=== PATIENT | male | born 1970 | race Asian ===

== ENCOUNTER 2023-05-14 13:57 | Inpatient (IN) | payer OTHER ==
[~2023-05-14] VITALS: Ht 162.6 cm; Wt 53.4 kg
[2023-05-14 15:26] LABS: GLUCOMETER DEV NAME(LOC) ERT.5; GLUCOSE,POINT OF CARE 92 MG/DL (70-110)
[2023-05-14 16:18] LABS: COVID AG,FIA SOURCE NASAL SWAB
[2023-05-14 16:19] LABS: EOSINOPHILS % (AUTO) 3.6 % (1.0-6.0); HEMATOCRIT 39.7 % (41-53); HEMOGLOBIN 12.4 g/dL (13.5-17.5); LYMPHOCYTES # (AUTO) 2.5 K/uL (1.0-4.8); LYMPHOCYTES % (AUTO) 29.8 % (22.0-44.0); MEAN CORPUSCULAR HEMOGLOBIN 22.6 pg (26.0-34.0); MEAN CORPUSCULAR HGB CONC 31.2 G/dL (31.0-37.0); MEAN CORPUSCULAR VOLUME 72 fL (80-100); MONOCYTES # (AUTO) 0.4 K/uL (0.1-1.0); MONOCYTES % (AUTO) 5.3 % (2.0-9.0); NEUTROPHILS # (AUTO) 4.9 K/uL (1.8-7.7); NEUTROPHILS % (AUTO) 59.3 % (40.0-70.0); PLATELET COUNT (AUTO) 331 K/uL (150-450); RED BLOOD CELL COUNT(AUTO) 5.47 MIL/uL (4.50-5.90); RED CELL DISTRIBUTION WIDTH 13.9 % (11.5-14.5); WHITE BLOOD COUNT (AUTO) 8.2 K/uL (4.5-11.0)
[2023-05-14 16:23] LABS: ANION GAP 8 mmol/L (8-16); CALCIUM, TOTAL 9.4 mg/dL (8.8-10.5); CARBON DIOXIDE 31 mmol/L (22-29); CHLORIDE 105 mmol/L (98-107); CREATININE 0.47 mg/dL (0.60-1.30); GLOMERULAR FILTR. RATE CALC > 60 mL/min (>60); GLUCOSE,RANDOM 91 mg/dL (70-110); POTASSIUM 3.4 mmol/L (3.5-5.1); SODIUM SERUM 144 mmol/L (136-145); UREA NITROGEN, BLOOD 4 mg/dL (7-18)
[2023-05-14 16:28] LABS: ALANINE AMINOTRANSFERASE 23 U/L (12-78); ALBUMIN 4.2 g/dL (3.4-5.0); ALKALINE PHOSPHATASE 182 U/L (46-116); ASPARTATE AMINOTRANSFERASE 25 U/L (15-37); BILIRUBIN,TOTAL 0.2 mg/dL (0.1-1.0); TOTAL PROTEIN, SERUM 9.2 g/dL (6.4-8.2)
[2023-05-14 16:52] LABS: SARS-COV2 (COVID) ANTIGEN,FIA Negative (Negative)
[2023-05-14 17:02] LABS: RBC MORPHOLOGY COMMENT ABNORMAL RBC MORPH
[2023-05-14] MEDS ORDERED: FERR325T27 PO (17:39)
[2023-05-14] MEDS ORDERED: METO25XL PO (17:39)
[2023-05-14] MEDS ORDERED: PANT-31 PO (17:39)
[2023-05-14] MEDS ORDERED: METF-1211 PO (17:39)
[2023-05-14] MEDS ORDERED: DULO20CA71 PO (17:39)
[2023-05-14] MEDS ORDERED: LISI-894 PO (17:39)
[2023-05-14] MEDS ORDERED: DESM0.1T6 PO (17:39)
[2023-05-14] MEDS ORDERED: PENT400T72 PO (17:39)
[2023-05-14] MEDS ORDERED: ATOR20TA65 PO (17:39)
[2023-05-14] MEDS ORDERED: LEVO88TA7 PO (17:39)
[2023-05-14] MEDS ORDERED: LEVE750T10 PO (17:39)
[2023-05-14] MEDS ORDERED: ONDANSETRON HCL 4 MG/2 ML VIAL IVP ONE (18:30)
[2023-05-14] MEDS ORDERED: MORPHINE SULFATE 2 MG/ML SYRINGE IVP ONE (18:30)
[2023-05-14 18:41] LABS: GLUCOMETER DEV NAME(LOC) ERT.5; GLUCOSE,POINT OF CARE 100 MG/DL (70-110)
[2023-05-14] MEDS ORDERED: POTASSIUM CHLORIDE 10% 40 MEQ/30 ML LIQUID UDCUP PO ONE (21:30)
[2023-05-14] MEDS ORDERED: ACETAMINOPHEN 325 MG TABLET PO PRN (21:30)
[2023-05-14] MEDS ORDERED: ONDANSETRON HCL 4 MG/2 ML VIAL IVP PRN (21:30)
[2023-05-14 22:50] VITALS: BP 166/89; PULSE 78; RESP 18; TEMP 97.7
[2023-05-14] MEDS: HEPARIN SODIUM,PORCINE 5,000 UNITS/ML VIAL SQ SCH (23:50)
[2023-05-15 03:46] VITALS: BP 127/87; PULSE 92; RESP 18; TEMP 98.1
[2023-05-15 06:53] LABS: BASOPHILS % (AUTO) 0.2 % (0.0-2.0); EOSINOPHILS % (AUTO) 5.5 % (1.0-6.0); HEMATOCRIT 35.4 % (41-53); HEMOGLOBIN 11.6 g/dL (13.5-17.5); LYMPHOCYTES % (AUTO) 33.8 % (22.0-44.0); MEAN CORPUSCULAR HEMOGLOBIN 23.3 pg (26.0-34.0); MEAN CORPUSCULAR HGB CONC 32.6 G/dL (31.0-37.0); MEAN CORPUSCULAR VOLUME 71 fL (80-100); MONOCYTES # (AUTO) 0.7 K/uL (0.1-1.0); MONOCYTES % (AUTO) 7.5 % (2.0-9.0); NEUTROPHILS # (AUTO) 4.7 K/uL (1.8-7.7); PLATELET COUNT (AUTO) 343 K/uL (150-450); RED BLOOD CELL COUNT(AUTO) 4.96 MIL/uL (4.50-5.90); RED CELL DISTRIBUTION WIDTH 13.9 % (11.5-14.5); WHITE BLOOD COUNT (AUTO) 8.8 K/uL (4.5-11.0)
[2023-05-15] MEDS ORDERED: LIDOCAINE 5% TRANSDERMAL PATCH TD ONE (07:00)
[2023-05-15] MEDS ORDERED: LIDOCAINE 5% 36 GM OINTMENT TP ONE (07:00)
[2023-05-15 07:31] LABS: ANION GAP 7 mmol/L (8-16); CALCIUM, TOTAL 9.2 mg/dL (8.8-10.5); CARBON DIOXIDE 28 mmol/L (22-29); CHLORIDE 104 mmol/L (98-107); CREATININE 0.45 mg/dL (0.60-1.30); GLOMERULAR FILTR. RATE CALC > 60 mL/min (>60); GLUCOSE,RANDOM 103 mg/dL (70-110); POTASSIUM 3.6 mmol/L (3.5-5.1); SODIUM SERUM 139 mmol/L (136-145); UREA NITROGEN, BLOOD 3 mg/dL (7-18)
[2023-05-15 08:10] VITALS: BP 118/94; PULSE 83; RESP 20; TEMP 98
[2023-05-15] MEDS: LEVOTHYROXINE SODIUM 88 MCG TABLET PO SCH (08:42)
[2023-05-15] MEDS: MetFORMIN HCL 500 MG TABLET PO SCH ×2 (08:43→17:54)
[2023-05-15] MEDS: DOCUSATE SODIUM 100 MG CAPSULE PO SCH ×2 (08:43→20:28)
[2023-05-15] MEDS: PENTOXIFYLLINE 400 MG PO SCH ×3 (08:43→20:27)
[2023-05-15] MEDS: DULoxetine HCL 20 MG CAPSULE PO SCH (08:43)
[2023-05-15] MEDS: PANTOPRAZOLE SODIUM 40 MG DR TABLET PO SCH (08:43)
[2023-05-15] MEDS: METOPROLOL SUCCINATE 25 MG ER TABLET PO SCH (08:43)
[2023-05-15] MEDS: ATORVASTATIN CALCIUM 20 MG TABLET PO SCH (08:43)
[2023-05-15] MEDS: LevETIRAcetam 250 MG TABLET PO SCH ×2 (08:43→20:27)
[2023-05-15] MEDS: FERROUS SULFATE 325 MG EC TABLET PO SCH (08:43)
[2023-05-15] MEDS: LISINOPRIL 20 MG TABLET PO SCH (08:43)
[2023-05-15] MEDS: HEPARIN SODIUM,PORCINE 5,000 UNITS/ML VIAL SQ SCH ×3 (08:44→23:52)
[2023-05-15] MEDS ORDERED: DESMOPRESSIN ACETATE 0.1 MG TABLET PO SCH (09:00)
[2023-05-15 09:50] LABS: RBC MORPHOLOGY COMMENT ABNORMAL RBC MORPH
[2023-05-15] MEDS ORDERED: MORPHINE SULFATE 2 MG/ML SYRINGE IVP PRN (15:30)
[2023-05-15 16:41] VITALS: BP 102/60; PULSE 65; RESP 18; TEMP 97.8
[2023-05-15 19:44] VITALS: BP 90/60; PULSE 68; RESP 18; TEMP 98.4
[2023-05-15] MEDS ORDERED: SODIUM CHLORIDE 0.9% 500 ML IV ONE (20:30)
[2023-05-16 04:40] VITALS: BP 90/59; PULSE 65; RESP 18; TEMP 98
[2023-05-16 07:10] LABS: BASOPHILS % (AUTO) 0.7 % (0.0-2.0); EOSINOPHILS % (AUTO) 3.7 % (1.0-6.0); HEMATOCRIT 34.7 % (41-53); HEMOGLOBIN 11.3 g/dL (13.5-17.5); LYMPHOCYTES # (AUTO) 2.6 K/uL (1.0-4.8); LYMPHOCYTES % (AUTO) 27.6 % (22.0-44.0); MEAN CORPUSCULAR HEMOGLOBIN 23.1 pg (26.0-34.0); MEAN CORPUSCULAR HGB CONC 32.4 G/dL (31.0-37.0); MEAN CORPUSCULAR VOLUME 71 fL (80-100); MONOCYTES # (AUTO) 0.6 K/uL (0.1-1.0); MONOCYTES % (AUTO) 6.3 % (2.0-9.0); NEUTROPHILS # (AUTO) 5.8 K/uL (1.8-7.7); NEUTROPHILS % (AUTO) 61.7 % (40.0-70.0); PLATELET COUNT (AUTO) 312 K/uL (150-450); RED BLOOD CELL COUNT(AUTO) 4.87 MIL/uL (4.50-5.90); RED CELL DISTRIBUTION WIDTH 13.7 % (11.5-14.5); WHITE BLOOD COUNT (AUTO) 9.4 K/uL (4.5-11.0)
[2023-05-16 07:15] LABS: ANION GAP 6 mmol/L (8-16); CARBON DIOXIDE 29 mmol/L (22-29); CHLORIDE 101 mmol/L (98-107); CREATININE 0.54 mg/dL (0.60-1.30); GLOMERULAR FILTR. RATE CALC > 60 mL/min (>60); GLUCOSE,RANDOM 97 mg/dL (70-110); POTASSIUM 4.1 mmol/L (3.5-5.1); SODIUM SERUM 136 mmol/L (136-145); UREA NITROGEN, BLOOD 10 mg/dL (7-18)
[2023-05-16 07:36] LABS: RBC MORPHOLOGY COMMENT ABNORMAL RBC MORPH
[2023-05-16 08:29] VITALS: BP 140/62; PULSE 76; RESP 18; TEMP 98.3
[2023-05-16] MEDS: PENTOXIFYLLINE 400 MG PO SCH ×3 (08:47→20:09)
[2023-05-16] MEDS: LISINOPRIL 20 MG TABLET PO SCH (08:47)
[2023-05-16] MEDS: LEVOTHYROXINE SODIUM 88 MCG TABLET PO SCH (08:47)
[2023-05-16] MEDS: METOPROLOL SUCCINATE 25 MG ER TABLET PO SCH (08:47)
[2023-05-16] MEDS: MetFORMIN HCL 500 MG TABLET PO SCH ×2 (08:47→17:58)
[2023-05-16] MEDS: ATORVASTATIN CALCIUM 20 MG TABLET PO SCH (08:47)
[2023-05-16] MEDS: DULoxetine HCL 20 MG CAPSULE PO SCH (08:47)
[2023-05-16] MEDS: PANTOPRAZOLE SODIUM 40 MG DR TABLET PO SCH (08:47)
[2023-05-16] MEDS: LevETIRAcetam 250 MG TABLET PO SCH ×2 (08:48→20:09)
[2023-05-16] MEDS: DOCUSATE SODIUM 100 MG CAPSULE PO SCH ×2 (08:48→20:09)
[2023-05-16] MEDS: FERROUS SULFATE 325 MG EC TABLET PO SCH (08:48)
[2023-05-16] MEDS: HEPARIN SODIUM,PORCINE 5,000 UNITS/ML VIAL SQ SCH ×3 (08:50→23:40)
[2023-05-16 16:10] VITALS: BP 109/89; PULSE 72; RESP 18; TEMP 97.7
[2023-05-16 19:48] VITALS: BP 135/73; PULSE 68; RESP 20; TEMP 98
[2023-05-16] MEDS: MORPHINE SULFATE 2 MG/ML SYRINGE IVP PRN (20:10)
[2023-05-17 05:29] VITALS: BP 120/80; PULSE 75; RESP 18; TEMP 98
[2023-05-17] MEDS: LEVOTHYROXINE SODIUM 88 MCG TABLET PO SCH (05:39)
[2023-05-17 07:26] LABS: BASOPHILS % (AUTO) 1.2 % (0.0-2.0); HEMATOCRIT 35.7 % (41-53); HEMOGLOBIN 11.6 g/dL (13.5-17.5); LYMPHOCYTES # (AUTO) 3.2 K/uL (1.0-4.8); LYMPHOCYTES % (AUTO) 33.8 % (22.0-44.0); MEAN CORPUSCULAR HEMOGLOBIN 23.1 pg (26.0-34.0); MEAN CORPUSCULAR HGB CONC 32.4 G/dL (31.0-37.0); MEAN CORPUSCULAR VOLUME 71 fL (80-100); MONOCYTES # (AUTO) 0.6 K/uL (0.1-1.0); MONOCYTES % (AUTO) 6.3 % (2.0-9.0); NEUTROPHILS # (AUTO) 5.2 K/uL (1.8-7.7); NEUTROPHILS % (AUTO) 54.7 % (40.0-70.0); PLATELET COUNT (AUTO) 338 K/uL (150-450); RED BLOOD CELL COUNT(AUTO) 5.02 MIL/uL (4.50-5.90); RED CELL DISTRIBUTION WIDTH 13.8 % (11.5-14.5); WHITE BLOOD COUNT (AUTO) 9.5 K/uL (4.5-11.0)
[2023-05-17 07:28] VITALS: BP 137/73; PULSE 71; RESP 18; TEMP 98.3
[2023-05-17 07:32] LABS: CHLORIDE 99 mmol/L (98-107); POTASSIUM 3.9 mmol/L (3.5-5.1); SODIUM SERUM 135 mmol/L (136-145)
[2023-05-17 07:47] LABS: ANION GAP 10 mmol/L (8-16); CALCIUM, TOTAL 9.2 mg/dL (8.8-10.5); CARBON DIOXIDE 26 mmol/L (22-29); CREATININE 0.42 mg/dL (0.60-1.30); GLOMERULAR FILTR. RATE CALC > 60 mL/min (>60); GLUCOSE,RANDOM 94 mg/dL (70-110); UREA NITROGEN, BLOOD 9 mg/dL (7-18)
[2023-05-17] MEDS: METOPROLOL SUCCINATE 25 MG ER TABLET PO SCH (08:49)
[2023-05-17] MEDS: DULoxetine HCL 20 MG CAPSULE PO SCH (08:49)
[2023-05-17] MEDS: PENTOXIFYLLINE 400 MG PO SCH ×3 (08:50→20:18)
[2023-05-17] MEDS: FERROUS SULFATE 325 MG EC TABLET PO SCH (08:50)
[2023-05-17] MEDS: LISINOPRIL 20 MG TABLET PO SCH (08:50)
[2023-05-17] MEDS: LevETIRAcetam 250 MG TABLET PO SCH ×2 (08:50→20:18)
[2023-05-17] MEDS: MetFORMIN HCL 500 MG TABLET PO SCH ×2 (08:51→17:55)
[2023-05-17] MEDS: HEPARIN SODIUM,PORCINE 5,000 UNITS/ML VIAL SQ SCH ×3 (08:51→23:27)
[2023-05-17] MEDS: DOCUSATE SODIUM 100 MG CAPSULE PO SCH ×2 (08:51→20:18)
[2023-05-17] MEDS: ATORVASTATIN CALCIUM 20 MG TABLET PO SCH (08:51)
[2023-05-17] MEDS: PANTOPRAZOLE SODIUM 40 MG DR TABLET PO SCH (08:51)
[2023-05-17] MEDS: MORPHINE SULFATE 2 MG/ML SYRINGE IVP PRN ×2 (15:21→23:26)
[2023-05-17 15:41] VITALS: BP 107/68; PULSE 71; RESP 18; TEMP 98
[2023-05-17 19:39] VITALS: BP 98/68; PULSE 71; RESP 18; TEMP 98
[2023-05-17 23:22] VITALS: BP 119/79; RESP 17
[2023-05-18 04:02] VITALS: BP 106/81; PULSE 62; RESP 18; TEMP 98
[2023-05-18] MEDS: LEVOTHYROXINE SODIUM 88 MCG TABLET PO SCH (05:51)
[2023-05-18 07:24] LABS: BASOPHILS % (AUTO) 1.1 % (0.0-2.0); EOSINOPHILS % (AUTO) 3.4 % (1.0-6.0); HEMATOCRIT 35.7 % (41-53); HEMOGLOBIN 11.7 g/dL (13.5-17.5); LYMPHOCYTES # (AUTO) 2.9 K/uL (1.0-4.8); LYMPHOCYTES % (AUTO) 28.8 % (22.0-44.0); MEAN CORPUSCULAR HEMOGLOBIN 23.2 pg (26.0-34.0); MEAN CORPUSCULAR HGB CONC 32.8 G/dL (31.0-37.0); MEAN CORPUSCULAR VOLUME 71 fL (80-100); MONOCYTES # (AUTO) 0.7 K/uL (0.1-1.0); MONOCYTES % (AUTO) 6.6 % (2.0-9.0); NEUTROPHILS # (AUTO) 6.2 K/uL (1.8-7.7); NEUTROPHILS % (AUTO) 60.1 % (40.0-70.0); PLATELET COUNT (AUTO) 336 K/uL (150-450); RED BLOOD CELL COUNT(AUTO) 5.04 MIL/uL (4.50-5.90); RED CELL DISTRIBUTION WIDTH 14.1 % (11.5-14.5); WHITE BLOOD COUNT (AUTO) 10.2 K/uL (4.5-11.0)
[2023-05-18 07:48] VITALS: BP 110/82; PULSE 66; RESP 18; TEMP 98.2
[2023-05-18 07:56] LABS: ANION GAP 7 mmol/L (8-16); CALCIUM, TOTAL 9.4 mg/dL (8.8-10.5); CARBON DIOXIDE 30 mmol/L (22-29); CHLORIDE 98 mmol/L (98-107); CREATININE 0.44 mg/dL (0.60-1.30); GLOMERULAR FILTR. RATE CALC > 60 mL/min (>60); GLUCOSE,RANDOM 99 mg/dL (70-110); POTASSIUM 3.8 mmol/L (3.5-5.1); SODIUM SERUM 135 mmol/L (136-145); UREA NITROGEN, BLOOD 10 mg/dL (7-18)
[2023-05-18] MEDS: LISINOPRIL 20 MG TABLET PO SCH (08:15)
[2023-05-18] MEDS: PENTOXIFYLLINE 400 MG PO SCH ×3 (08:15→20:55)
[2023-05-18] MEDS: DULoxetine HCL 20 MG CAPSULE PO SCH (08:15)
[2023-05-18] MEDS: MetFORMIN HCL 500 MG TABLET PO SCH ×2 (08:15→17:31)
[2023-05-18] MEDS: FERROUS SULFATE 325 MG EC TABLET PO SCH (08:15)
[2023-05-18] MEDS: DOCUSATE SODIUM 100 MG CAPSULE PO SCH ×2 (08:16→20:55)
[2023-05-18] MEDS: ATORVASTATIN CALCIUM 20 MG TABLET PO SCH (08:16)
[2023-05-18] MEDS: LevETIRAcetam 250 MG TABLET PO SCH ×2 (08:16→20:55)
[2023-05-18] MEDS: METOPROLOL SUCCINATE 25 MG ER TABLET PO SCH (08:16)
[2023-05-18] MEDS: PANTOPRAZOLE SODIUM 40 MG DR TABLET PO SCH (08:16)
[2023-05-18] MEDS: HEPARIN SODIUM,PORCINE 5,000 UNITS/ML VIAL SQ SCH ×3 (08:17→23:51)
[2023-05-18] MEDS: MORPHINE SULFATE 2 MG/ML SYRINGE IVP PRN ×2 (13:33→21:34)
[2023-05-18 15:30] VITALS: BP 114/84; PULSE 68; RESP 18; TEMP 97.4
[2023-05-18 19:50] VITALS: BP 106/75; PULSE 87; RESP 18; TEMP 97.5
[2023-05-19 04:35] VITALS: BP 113/73; PULSE 77; RESP 18; TEMP 98
[2023-05-19] MEDS: LEVOTHYROXINE SODIUM 88 MCG TABLET PO SCH (06:07)
[2023-05-19 08:25] VITALS: BP 116/77; PULSE 78; RESP 18; TEMP 97.8
[2023-05-19] MEDS: LevETIRAcetam 250 MG TABLET PO SCH ×2 (08:38→20:15)
[2023-05-19] MEDS: LISINOPRIL 20 MG TABLET PO SCH (08:38)
[2023-05-19] MEDS: PANTOPRAZOLE SODIUM 40 MG DR TABLET PO SCH (08:38)
[2023-05-19] MEDS: PENTOXIFYLLINE 400 MG PO SCH ×4 (08:38→20:19)
[2023-05-19] MEDS: FERROUS SULFATE 325 MG EC TABLET PO SCH (08:38)
[2023-05-19] MEDS: MetFORMIN HCL 500 MG TABLET PO SCH ×2 (08:38→17:14)
[2023-05-19] MEDS: DULoxetine HCL 20 MG CAPSULE PO SCH (08:38)
[2023-05-19] MEDS: METOPROLOL SUCCINATE 25 MG ER TABLET PO SCH (08:38)
[2023-05-19] MEDS: DOCUSATE SODIUM 100 MG CAPSULE PO SCH ×3 (08:43→20:19)
[2023-05-19] MEDS: HEPARIN SODIUM,PORCINE 5,000 UNITS/ML VIAL SQ SCH ×3 (08:43→23:53)
[2023-05-19] MEDS: ATORVASTATIN CALCIUM 20 MG TABLET PO SCH (08:48)
[2023-05-19] MEDS: MORPHINE SULFATE 2 MG/ML SYRINGE IVP PRN ×2 (09:00→17:12)
[2023-05-19 12:11] LABS: GLUCOMETER DEV NAME(LOC) 6N.2B; GLUCOSE,POINT OF CARE 107 MG/DL (70-110)
[2023-05-19 15:28] VITALS: BP 117/73; PULSE 73; RESP 18; TEMP 98.4
[2023-05-19 19:54] VITALS: BP 119/77; PULSE 70; RESP 18; TEMP 98.5
[2023-05-20] MEDS: MORPHINE SULFATE 2 MG/ML SYRINGE IVP PRN ×3 (00:57→20:22)
[2023-05-20 04:14] VITALS: BP 117/71; PULSE 75; RESP 18; TEMP 97.8
[2023-05-20] MEDS: LEVOTHYROXINE SODIUM 88 MCG TABLET PO SCH (06:10)
[2023-05-20 08:21] VITALS: BP 108/80; PULSE 69; RESP 19; TEMP 98.4
[2023-05-20] MEDS: LevETIRAcetam 250 MG TABLET PO SCH ×2 (08:57→20:18)
[2023-05-20] MEDS: MetFORMIN HCL 500 MG TABLET PO SCH ×2 (08:57→18:00)
[2023-05-20] MEDS: HEPARIN SODIUM,PORCINE 5,000 UNITS/ML VIAL SQ SCH ×3 (08:57→23:03)
[2023-05-20] MEDS: PANTOPRAZOLE SODIUM 40 MG DR TABLET PO SCH (08:58)
[2023-05-20] MEDS: DULoxetine HCL 20 MG CAPSULE PO SCH (08:58)
[2023-05-20] MEDS: ATORVASTATIN CALCIUM 20 MG TABLET PO SCH (08:58)
[2023-05-20] MEDS: FERROUS SULFATE 325 MG EC TABLET PO SCH (08:58)
[2023-05-20] MEDS: PENTOXIFYLLINE 400 MG PO SCH ×3 (08:58→20:18)
[2023-05-20] MEDS: DOCUSATE SODIUM 100 MG CAPSULE PO SCH ×3 (08:58→20:22)
[2023-05-20] MEDS: LISINOPRIL 20 MG TABLET PO SCH (09:00)
[2023-05-20] MEDS: METOPROLOL SUCCINATE 25 MG ER TABLET PO SCH (09:00)
[2023-05-20 16:31] VITALS: BP 110/78; PULSE 79; RESP 19; TEMP 98.4
[2023-05-20 19:40] VITALS: BP 109/65; PULSE 82; RESP 20; TEMP 97.8
[2023-05-21] MEDS: LEVOTHYROXINE SODIUM 88 MCG TABLET PO SCH (06:19)
[2023-05-21] MEDS: MORPHINE SULFATE 2 MG/ML SYRINGE IVP PRN ×2 (06:27→19:53)
[2023-05-21 08:14] VITALS: BP 110/68; PULSE 82; RESP 20; TEMP 97.9
[2023-05-21] MEDS: DOCUSATE SODIUM 100 MG CAPSULE PO SCH ×4 (08:56→19:59)
[2023-05-21] MEDS: DULoxetine HCL 20 MG CAPSULE PO SCH (08:56)
[2023-05-21] MEDS: HEPARIN SODIUM,PORCINE 5,000 UNITS/ML VIAL SQ SCH ×2 (08:56→17:06)
[2023-05-21] MEDS: LevETIRAcetam 250 MG TABLET PO SCH ×2 (08:57→19:52)
[2023-05-21] MEDS: ATORVASTATIN CALCIUM 20 MG TABLET PO SCH (08:57)
[2023-05-21] MEDS: PANTOPRAZOLE SODIUM 40 MG DR TABLET PO SCH (08:57)
[2023-05-21] MEDS: PENTOXIFYLLINE 400 MG PO SCH ×3 (08:58→19:52)
[2023-05-21] MEDS: LISINOPRIL 20 MG TABLET PO SCH (08:59)
[2023-05-21] MEDS: MetFORMIN HCL 500 MG TABLET PO SCH ×2 (08:59→18:23)
[2023-05-21] MEDS: FERROUS SULFATE 325 MG EC TABLET PO SCH (08:59)
[2023-05-21] MEDS: METOPROLOL SUCCINATE 25 MG ER TABLET PO SCH (09:00)
[2023-05-21 15:33] VITALS: BP 108/58; PULSE 75; RESP 20; TEMP 98.3
[2023-05-21 19:35] VITALS: BP 109/78; PULSE 83; RESP 18; TEMP 98.3
[2023-05-22] MEDS: HEPARIN SODIUM,PORCINE 5,000 UNITS/ML VIAL SQ SCH ×4 (00:15→23:56)
[2023-05-22 03:31] VITALS: BP 119/78; PULSE 74; RESP 18; TEMP 98
[2023-05-22] MEDS: LEVOTHYROXINE SODIUM 88 MCG TABLET PO SCH (07:13)
[2023-05-22] MEDS: DOCUSATE SODIUM 100 MG CAPSULE PO SCH ×3 (08:17→21:20)
[2023-05-22] MEDS: PENTOXIFYLLINE 400 MG PO SCH ×3 (08:17→21:22)
[2023-05-22] MEDS: MetFORMIN HCL 500 MG TABLET PO SCH ×2 (08:18→18:34)
[2023-05-22] MEDS: PANTOPRAZOLE SODIUM 40 MG DR TABLET PO SCH (08:18)
[2023-05-22] MEDS: FERROUS SULFATE 325 MG EC TABLET PO SCH (08:18)
[2023-05-22] MEDS: ATORVASTATIN CALCIUM 20 MG TABLET PO SCH (08:19)
[2023-05-22] MEDS: DULoxetine HCL 20 MG CAPSULE PO SCH (08:19)
[2023-05-22] MEDS: LISINOPRIL 20 MG TABLET PO SCH (08:19)
[2023-05-22] MEDS: LevETIRAcetam 250 MG TABLET PO SCH ×2 (08:20→21:20)
[2023-05-22] MEDS: METOPROLOL SUCCINATE 25 MG ER TABLET PO SCH (08:26)
[2023-05-22] MEDS: MORPHINE SULFATE 2 MG/ML SYRINGE IVP PRN ×2 (08:29→22:14)
[2023-05-22 09:04] VITALS: BP 119/87; PULSE 76; RESP 18; TEMP 98.1
[2023-05-22 17:44] VITALS: BP 107/62; PULSE 83; RESP 18; TEMP 98.4
[2023-05-22] MEDS: TraMADol HCL 50 MG TABLET PO PRN (21:19)
[2023-05-22 21:50] VITALS: BP 102/55; PULSE 90; RESP 18; TEMP 97.6
[2023-05-23 04:36] VITALS: BP 116/74; PULSE 83; RESP 18; TEMP 97.7
[2023-05-23 08:23] VITALS: BP 118/83; PULSE 76; RESP 19; TEMP 97.5
[2023-05-23] MEDS: DOCUSATE SODIUM 100 MG CAPSULE PO SCH ×3 (09:00→19:42)
[2023-05-23] MEDS: PENTOXIFYLLINE 400 MG PO SCH ×3 (09:03→19:35)
[2023-05-23] MEDS: LISINOPRIL 20 MG TABLET PO SCH (09:03)
[2023-05-23] MEDS: FERROUS SULFATE 325 MG EC TABLET PO SCH (09:03)
[2023-05-23] MEDS: LevETIRAcetam 250 MG TABLET PO SCH ×2 (09:03→19:35)
[2023-05-23] MEDS: DULoxetine HCL 20 MG CAPSULE PO SCH (09:03)
[2023-05-23] MEDS: PANTOPRAZOLE SODIUM 40 MG DR TABLET PO SCH (09:03)
[2023-05-23] MEDS: METOPROLOL SUCCINATE 25 MG ER TABLET PO SCH (09:04)
[2023-05-23] MEDS: LEVOTHYROXINE SODIUM 88 MCG TABLET PO SCH (09:04)
[2023-05-23] MEDS: MetFORMIN HCL 500 MG TABLET PO SCH ×2 (09:04→18:21)
[2023-05-23] MEDS: HEPARIN SODIUM,PORCINE 5,000 UNITS/ML VIAL SQ SCH ×3 (09:04→23:10)
[2023-05-23] MEDS: ATORVASTATIN CALCIUM 20 MG TABLET PO SCH (09:07)
[2023-05-23] MEDS: TraMADol HCL 50 MG TABLET PO PRN ×2 (09:47→23:12)
[2023-05-23] MEDS: MORPHINE SULFATE 2 MG/ML SYRINGE IVP PRN ×2 (11:32→19:34)
[2023-05-23 16:34] VITALS: BP 118/75; PULSE 81; RESP 19; TEMP 97.8
[2023-05-23 19:18] VITALS: BP 107/74; PULSE 87; RESP 18; TEMP 97.7
[2023-05-24 03:46] VITALS: BP 108/70; PULSE 89; RESP 18; TEMP 98.3
[2023-05-24] MEDS: MORPHINE SULFATE 2 MG/ML SYRINGE IVP PRN ×3 (03:48→21:39)
[2023-05-24] MEDS: LEVOTHYROXINE SODIUM 88 MCG TABLET PO SCH (06:25)
[2023-05-24] MEDS: PANTOPRAZOLE SODIUM 40 MG DR TABLET PO SCH (08:38)
[2023-05-24] MEDS: METOPROLOL SUCCINATE 25 MG ER TABLET PO SCH (08:38)
[2023-05-24] MEDS: ATORVASTATIN CALCIUM 20 MG TABLET PO SCH (08:38)
[2023-05-24] MEDS: LISINOPRIL 20 MG TABLET PO SCH (08:38)
[2023-05-24] MEDS: DULoxetine HCL 20 MG CAPSULE PO SCH (08:38)
[2023-05-24] MEDS: PENTOXIFYLLINE 400 MG PO SCH ×3 (08:38→20:23)
[2023-05-24] MEDS: HEPARIN SODIUM,PORCINE 5,000 UNITS/ML VIAL SQ SCH ×3 (08:38→23:25)
[2023-05-24] MEDS: LevETIRAcetam 250 MG TABLET PO SCH ×2 (08:38→20:24)
[2023-05-24] MEDS: MetFORMIN HCL 500 MG TABLET PO SCH ×2 (08:38→18:22)
[2023-05-24] MEDS: FERROUS SULFATE 325 MG EC TABLET PO SCH (08:38)
[2023-05-24] MEDS: DOCUSATE SODIUM 100 MG CAPSULE PO SCH ×2 (08:44→20:30)
[2023-05-24 09:13] VITALS: BP 108/68; PULSE 85; RESP 18; TEMP 97.6
[2023-05-24 16:58] VITALS: BP 114/67; PULSE 79; RESP 18; TEMP 98.2
[2023-05-24] MEDS: TraMADol HCL 50 MG TABLET PO PRN (18:26)
[2023-05-24 19:55] VITALS: BP 131/82; PULSE 78; RESP 20; TEMP 98.2
[2023-05-24] MEDS: MELATONIN 3 MG TABLET PO PRN (23:26)
[2023-05-25] MEDS: LEVOTHYROXINE SODIUM 88 MCG TABLET PO SCH (06:40)
[2023-05-25] MEDS: MORPHINE SULFATE 2 MG/ML SYRINGE IVP PRN ×3 (06:49→23:33)
[2023-05-25 06:54] LABS: BASOPHILS % (AUTO) 1.1 % (0.0-2.0); EOSINOPHILS % (AUTO) 2.8 % (1.0-6.0); HEMATOCRIT 38.3 % (41-53); HEMOGLOBIN 12.3 g/dL (13.5-17.5); LYMPHOCYTES # (AUTO) 3.4 K/uL (1.0-4.8); LYMPHOCYTES % (AUTO) 32.5 % (22.0-44.0); MEAN CORPUSCULAR HEMOGLOBIN 22.9 pg (26.0-34.0); MEAN CORPUSCULAR HGB CONC 32.2 G/dL (31.0-37.0); MEAN CORPUSCULAR VOLUME 71 fL (80-100); MONOCYTES # (AUTO) 0.7 K/uL (0.1-1.0); MONOCYTES % (AUTO) 6.7 % (2.0-9.0); NEUTROPHILS # (AUTO) 5.9 K/uL (1.8-7.7); NEUTROPHILS % (AUTO) 56.9 % (40.0-70.0); PLATELET COUNT (AUTO) 379 K/uL (150-450); RED BLOOD CELL COUNT(AUTO) 5.38 MIL/uL (4.50-5.90); RED CELL DISTRIBUTION WIDTH 14.3 % (11.5-14.5); WHITE BLOOD COUNT (AUTO) 10.4 K/uL (4.5-11.0)
[2023-05-25 07:14] LABS: ANION GAP 10 mmol/L (8-16); CALCIUM, TOTAL 9.4 mg/dL (8.8-10.5); CARBON DIOXIDE 27 mmol/L (22-29); CHLORIDE 94 mmol/L (98-107); CREATININE 0.53 mg/dL (0.60-1.30); GLOMERULAR FILTR. RATE CALC > 60 mL/min (>60); GLUCOSE,RANDOM 97 mg/dL (70-110); POTASSIUM 3.9 mmol/L (3.5-5.1); SODIUM SERUM 131 mmol/L (136-145); UREA NITROGEN, BLOOD 15 mg/dL (7-18)
[2023-05-25 08:40] VITALS: BP 124/76; PULSE 87
[2023-05-25] MEDS: LISINOPRIL 20 MG TABLET PO SCH (08:49)
[2023-05-25] MEDS: PENTOXIFYLLINE 400 MG PO SCH ×3 (08:49→19:37)
[2023-05-25] MEDS: FERROUS SULFATE 325 MG EC TABLET PO SCH (08:49)
[2023-05-25] MEDS: DOCUSATE SODIUM 100 MG CAPSULE PO SCH ×2 (08:49→19:45)
[2023-05-25] MEDS: MetFORMIN HCL 500 MG TABLET PO SCH ×2 (08:49→18:40)
[2023-05-25] MEDS: METOPROLOL SUCCINATE 25 MG ER TABLET PO SCH (08:50)
[2023-05-25] MEDS: LevETIRAcetam 250 MG TABLET PO SCH ×2 (08:50→19:37)
[2023-05-25] MEDS: PANTOPRAZOLE SODIUM 40 MG DR TABLET PO SCH (08:50)
[2023-05-25] MEDS: DULoxetine HCL 20 MG CAPSULE PO SCH (08:51)
[2023-05-25] MEDS: ATORVASTATIN CALCIUM 20 MG TABLET PO SCH (08:51)
[2023-05-25] MEDS: HEPARIN SODIUM,PORCINE 5,000 UNITS/ML VIAL SQ SCH ×3 (08:52→23:31)
[2023-05-25 09:04] VITALS: BP 103/71; PULSE 89; RESP 20; TEMP 97.7
[2023-05-25 17:08] VITALS: BP 82/58; PULSE 82; RESP 20; TEMP 97.6
[2023-05-25 17:24] VITALS: BP 102/60; PULSE 78
[2023-05-25] MEDS: TraMADol HCL 50 MG TABLET PO PRN (19:41)
[2023-05-25 19:50] VITALS: BP 109/62; PULSE 78; RESP 18; TEMP 97.8
[2023-05-26 04:03] VITALS: BP 101/68; PULSE 72; RESP 18; TEMP 97.7
[2023-05-26] MEDS: LEVOTHYROXINE SODIUM 88 MCG TABLET PO SCH (06:11)
[2023-05-26 07:26] LABS: BASOPHILS % (AUTO) 0.3 % (0.0-2.0); EOSINOPHILS % (AUTO) 1.8 % (1.0-6.0); HEMATOCRIT 36.8 % (41-53); HEMOGLOBIN 12.1 g/dL (13.5-17.5); LYMPHOCYTES # (AUTO) 3.4 K/uL (1.0-4.8); LYMPHOCYTES % (AUTO) 35.1 % (22.0-44.0); MEAN CORPUSCULAR HEMOGLOBIN 23.4 pg (26.0-34.0); MEAN CORPUSCULAR VOLUME 71 fL (80-100); MONOCYTES # (AUTO) 0.6 K/uL (0.1-1.0); MONOCYTES % (AUTO) 6.3 % (2.0-9.0); NEUTROPHILS # (AUTO) 5.5 K/uL (1.8-7.7); NEUTROPHILS % (AUTO) 56.5 % (40.0-70.0); PLATELET COUNT (AUTO) 384 K/uL (150-450); RED CELL DISTRIBUTION WIDTH 13.8 % (11.5-14.5); WHITE BLOOD COUNT (AUTO) 9.8 K/uL (4.5-11.0)
[2023-05-26 08:02] LABS: RBC MORPHOLOGY COMMENT ABNORMAL RBC MORPH
[2023-05-26 08:29] VITALS: BP 100/62; PULSE 79; RESP 19; TEMP 98.1
[2023-05-26] MEDS: DOCUSATE SODIUM 100 MG CAPSULE PO SCH ×5 (09:00→21:00)
[2023-05-26] MEDS: LevETIRAcetam 250 MG TABLET PO SCH ×2 (09:08→20:19)
[2023-05-26] MEDS: MetFORMIN HCL 500 MG TABLET PO SCH ×2 (09:08→18:06)
[2023-05-26] MEDS: DULoxetine HCL 20 MG CAPSULE PO SCH (09:08)
[2023-05-26] MEDS: PENTOXIFYLLINE 400 MG PO SCH ×3 (09:08→20:19)
[2023-05-26] MEDS: METOPROLOL SUCCINATE 25 MG ER TABLET PO SCH (09:08)
[2023-05-26] MEDS: HEPARIN SODIUM,PORCINE 5,000 UNITS/ML VIAL SQ SCH ×3 (09:08→23:45)
[2023-05-26] MEDS: FERROUS SULFATE 325 MG EC TABLET PO SCH (09:08)
[2023-05-26] MEDS: PANTOPRAZOLE SODIUM 40 MG DR TABLET PO SCH (09:09)
[2023-05-26] MEDS: LISINOPRIL 20 MG TABLET PO SCH (09:09)
[2023-05-26] MEDS: ATORVASTATIN CALCIUM 20 MG TABLET PO SCH (09:09)
[2023-05-26 17:09] VITALS: BP 96/66; PULSE 78; RESP 19
[2023-05-26 19:44] VITALS: BP 97/61; PULSE 72; RESP 18; TEMP 97.8
[2023-05-26] MEDS: TraMADol HCL 50 MG TABLET PO PRN (21:16)
[2023-05-27] MEDS: LEVOTHYROXINE SODIUM 88 MCG TABLET PO SCH (06:40)
[2023-05-27 08:13] LABS: BASOPHILS % (AUTO) 0.8 % (0.0-2.0); EOSINOPHILS % (AUTO) 2.2 % (1.0-6.0); HEMATOCRIT 38.4 % (41-53); HEMOGLOBIN 12.3 g/dL (13.5-17.5); LYMPHOCYTES # (AUTO) 3.4 K/uL (1.0-4.8); LYMPHOCYTES % (AUTO) 30.7 % (22.0-44.0); MEAN CORPUSCULAR HEMOGLOBIN 22.9 pg (26.0-34.0); MEAN CORPUSCULAR HGB CONC 32.1 G/dL (31.0-37.0); MEAN CORPUSCULAR VOLUME 72 fL (80-100); MONOCYTES # (AUTO) 0.6 K/uL (0.1-1.0); MONOCYTES % (AUTO) 5.7 % (2.0-9.0); NEUTROPHILS # (AUTO) 6.7 K/uL (1.8-7.7); NEUTROPHILS % (AUTO) 60.6 % (40.0-70.0); PLATELET COUNT (AUTO) 348 K/uL (150-450); RED BLOOD CELL COUNT(AUTO) 5.37 MIL/uL (4.50-5.90); RED CELL DISTRIBUTION WIDTH 14.3 % (11.5-14.5); WHITE BLOOD COUNT (AUTO) 11.1 K/uL (4.5-11.0)
[2023-05-27] MEDS: FERROUS SULFATE 325 MG EC TABLET PO SCH (08:24)
[2023-05-27] MEDS: MetFORMIN HCL 500 MG TABLET PO SCH ×2 (08:24→17:23)
[2023-05-27] MEDS: HEPARIN SODIUM,PORCINE 5,000 UNITS/ML VIAL SQ SCH ×2 (08:24→16:04)
[2023-05-27] MEDS: LevETIRAcetam 250 MG TABLET PO SCH ×2 (08:30→20:40)
[2023-05-27] MEDS: DULoxetine HCL 20 MG CAPSULE PO SCH (08:30)
[2023-05-27] MEDS: ATORVASTATIN CALCIUM 20 MG TABLET PO SCH (08:30)
[2023-05-27] MEDS: PANTOPRAZOLE SODIUM 40 MG DR TABLET PO SCH (08:30)
[2023-05-27] MEDS: TraMADol HCL 50 MG TABLET PO PRN ×2 (08:30→18:40)
[2023-05-27] MEDS: METOPROLOL SUCCINATE 25 MG ER TABLET PO SCH (08:31)
[2023-05-27] MEDS: PENTOXIFYLLINE 400 MG PO SCH ×3 (08:35→20:40)
[2023-05-27] MEDS: LISINOPRIL 20 MG TABLET PO SCH (08:35)
[2023-05-27 09:23] VITALS: BP 124/81; PULSE 78; RESP 18; TEMP 97.9
[2023-05-27 09:32] LABS: RBC MORPHOLOGY COMMENT ABNORMAL RBC MORPH
[2023-05-27 15:56] VITALS: BP 90/58; PULSE 76; RESP 18; TEMP 97.9
[2023-05-27 19:39] VITALS: BP 121/76; PULSE 76; RESP 18; TEMP 98.6
[2023-05-27] MEDS: DOCUSATE SODIUM 100 MG CAPSULE PO SCH (21:00)
[2023-05-28] MEDS: HEPARIN SODIUM,PORCINE 5,000 UNITS/ML VIAL SQ SCH ×3 (00:05→16:36)
[2023-05-28 04:06] VITALS: BP 99/65; PULSE 74; RESP 18; TEMP 97.6
[2023-05-28] MEDS: LEVOTHYROXINE SODIUM 88 MCG TABLET PO SCH (06:02)
[2023-05-28 08:01] VITALS: BP 134/80; PULSE 79; RESP 20; TEMP 97.2
[2023-05-28] MEDS: LevETIRAcetam 250 MG TABLET PO SCH ×2 (08:51→20:12)
[2023-05-28] MEDS: DULoxetine HCL 20 MG CAPSULE PO SCH (08:51)
[2023-05-28] MEDS: ATORVASTATIN CALCIUM 20 MG TABLET PO SCH (08:52)
[2023-05-28] MEDS: PENTOXIFYLLINE 400 MG PO SCH ×3 (08:52→20:12)
[2023-05-28] MEDS: PANTOPRAZOLE SODIUM 40 MG DR TABLET PO SCH (08:52)
[2023-05-28] MEDS: FERROUS SULFATE 325 MG EC TABLET PO SCH (08:52)
[2023-05-28] MEDS: MetFORMIN HCL 500 MG TABLET PO SCH ×2 (08:52→18:05)
[2023-05-28] MEDS: METOPROLOL SUCCINATE 25 MG ER TABLET PO SCH (08:53)
[2023-05-28] MEDS: LISINOPRIL 20 MG TABLET PO SCH (08:53)
[2023-05-28 15:29] VITALS: BP 128/82; PULSE 78; RESP 20; TEMP 97.8
[2023-05-28 19:58] VITALS: BP 100/75; PULSE 77; RESP 20; TEMP 98
[2023-05-28] MEDS: TraMADol HCL 50 MG TABLET PO PRN (20:12)
[2023-05-28] MEDS: DOCUSATE SODIUM 100 MG CAPSULE PO SCH (20:25)
[2023-05-29] MEDS: HEPARIN SODIUM,PORCINE 5,000 UNITS/ML VIAL SQ SCH ×4 (00:11→23:35)
[2023-05-29 00:15] VITALS: BP 124/62; PULSE 80; RESP 20; TEMP 97.7
[2023-05-29] MEDS: MORPHINE SULFATE 2 MG/ML SYRINGE IVP PRN ×3 (00:18→20:58)
[2023-05-29 05:25] VITALS: BP 114/68; PULSE 72; RESP 20; TEMP 97.6
[2023-05-29] MEDS: LEVOTHYROXINE SODIUM 88 MCG TABLET PO SCH (05:53)
[2023-05-29] MEDS: FERROUS SULFATE 325 MG EC TABLET PO SCH (08:28)
[2023-05-29] MEDS: LevETIRAcetam 250 MG TABLET PO SCH ×2 (08:28→20:17)
[2023-05-29] MEDS: PANTOPRAZOLE SODIUM 40 MG DR TABLET PO SCH (08:29)
[2023-05-29] MEDS: PENTOXIFYLLINE 400 MG PO SCH ×3 (08:29→20:17)
[2023-05-29] MEDS: LISINOPRIL 20 MG TABLET PO SCH (08:29)
[2023-05-29] MEDS: DULoxetine HCL 20 MG CAPSULE PO SCH (08:29)
[2023-05-29] MEDS: ATORVASTATIN CALCIUM 20 MG TABLET PO SCH (08:34)
[2023-05-29] MEDS: MetFORMIN HCL 500 MG TABLET PO SCH ×2 (08:34→17:48)
[2023-05-29] MEDS: METOPROLOL SUCCINATE 25 MG ER TABLET PO SCH (08:34)
[2023-05-29] MEDS: DOCUSATE SODIUM 100 MG CAPSULE PO SCH ×2 (08:34→20:19)
[2023-05-29 08:45] VITALS: BP 117/77; PULSE 73; RESP 20; TEMP 98
[2023-05-29 15:47] VITALS: BP 105/71; PULSE 92; RESP 19; TEMP 97.9
[2023-05-29 19:50] VITALS: BP 105/66; PULSE 96; RESP 18; TEMP 98
[2023-05-29] MEDS: MELATONIN 3 MG TABLET PO PRN (23:39)
[2023-05-30 04:25] VITALS: BP 97/71; PULSE 90; RESP 20; TEMP 97.6
[2023-05-30] MEDS: LEVOTHYROXINE SODIUM 88 MCG TABLET PO SCH (05:44)
[2023-05-30 08:38] VITALS: BP 106/68; PULSE 94; RESP 20; TEMP 97.8
[2023-05-30] MEDS: FERROUS SULFATE 325 MG EC TABLET PO SCH (08:48)
[2023-05-30] MEDS: HEPARIN SODIUM,PORCINE 5,000 UNITS/ML VIAL SQ SCH ×3 (08:48→23:34)
[2023-05-30] MEDS: DOCUSATE SODIUM 100 MG CAPSULE PO SCH ×3 (08:48→21:22)
[2023-05-30] MEDS: PANTOPRAZOLE SODIUM 40 MG DR TABLET PO SCH (08:48)
[2023-05-30] MEDS: DULoxetine HCL 20 MG CAPSULE PO SCH (08:49)
[2023-05-30] MEDS: METOPROLOL SUCCINATE 25 MG ER TABLET PO SCH (08:49)
[2023-05-30] MEDS: MetFORMIN HCL 500 MG TABLET PO SCH ×2 (08:49→17:12)
[2023-05-30] MEDS: PENTOXIFYLLINE 400 MG PO SCH ×3 (08:49→21:22)
[2023-05-30] MEDS: LISINOPRIL 20 MG TABLET PO SCH (08:50)
[2023-05-30] MEDS: LevETIRAcetam 250 MG TABLET PO SCH ×2 (08:50→21:22)
[2023-05-30] MEDS: ATORVASTATIN CALCIUM 20 MG TABLET PO SCH (08:51)
[2023-05-30 15:46] VITALS: BP 103/55; PULSE 80; RESP 20; TEMP 97.6
[2023-05-30] MEDS: MORPHINE SULFATE 2 MG/ML SYRINGE IVP PRN (17:12)
[2023-05-30] MEDS ORDERED: HYDROmorphone HCL 2 MG TABLET PO ONE (17:45)
[2023-05-30 19:52] VITALS: BP 102/74; PULSE 68; RESP 18; TEMP 98
[2023-05-30] MEDS: TraMADol HCL 50 MG TABLET PO PRN (21:22)
[2023-05-31 04:55] VITALS: BP 110/76; PULSE 78; RESP 18; TEMP 97.7
[2023-05-31] MEDS: LEVOTHYROXINE SODIUM 88 MCG TABLET PO SCH (05:47)
[2023-05-31 08:50] VITALS: BP 95/58; PULSE 86; RESP 18; TEMP 97.7
[2023-05-31] MEDS: PENTOXIFYLLINE 400 MG PO SCH ×3 (08:55→20:54)
[2023-05-31] MEDS: LevETIRAcetam 250 MG TABLET PO SCH ×2 (08:56→20:54)
[2023-05-31] MEDS: DULoxetine HCL 20 MG CAPSULE PO SCH (08:57)
[2023-05-31] MEDS: ATORVASTATIN CALCIUM 20 MG TABLET PO SCH (08:58)
[2023-05-31] MEDS: LISINOPRIL 20 MG TABLET PO SCH (08:59)
[2023-05-31] MEDS: MetFORMIN HCL 500 MG TABLET PO SCH ×2 (08:59→18:43)
[2023-05-31] MEDS: FERROUS SULFATE 325 MG EC TABLET PO SCH (09:00)
[2023-05-31] MEDS: METOPROLOL SUCCINATE 25 MG ER TABLET PO SCH (09:00)
[2023-05-31] MEDS: DOCUSATE SODIUM 100 MG CAPSULE PO SCH ×2 (09:00→20:53)
[2023-05-31] MEDS: PANTOPRAZOLE SODIUM 40 MG DR TABLET PO SCH (09:02)
[2023-05-31] MEDS: HEPARIN SODIUM,PORCINE 5,000 UNITS/ML VIAL SQ SCH ×3 (09:07→23:11)
[2023-05-31] MEDS: TraMADol HCL 50 MG TABLET PO PRN (14:30)
[2023-05-31 15:07] VITALS: BP 106/56; PULSE 93; RESP 18; TEMP 98
[2023-05-31 19:35] VITALS: BP 95/70; PULSE 90; RESP 20; TEMP 97.8
[2023-06-01] MEDS: TraMADol HCL 50 MG TABLET PO PRN ×3 (00:15→17:01)
[2023-06-01 04:05] VITALS: BP 116/88; PULSE 85; RESP 20; TEMP 98.9
[2023-06-01] MEDS: LEVOTHYROXINE SODIUM 88 MCG TABLET PO SCH (05:41)
[2023-06-01 08:40] VITALS: BP 117/76; PULSE 100; RESP 18; TEMP 97.9
[2023-06-01] MEDS: PANTOPRAZOLE SODIUM 40 MG DR TABLET PO SCH (09:00)
[2023-06-01] MEDS: DOCUSATE SODIUM 100 MG CAPSULE PO SCH (09:00)
[2023-06-01] MEDS: LevETIRAcetam 250 MG TABLET PO SCH ×2 (09:00→20:29)
[2023-06-01] MEDS: LISINOPRIL 20 MG TABLET PO SCH (09:30)
[2023-06-01] MEDS: DULoxetine HCL 20 MG CAPSULE PO SCH (09:30)
[2023-06-01] MEDS: FERROUS SULFATE 325 MG EC TABLET PO SCH (09:30)
[2023-06-01] MEDS: PENTOXIFYLLINE 400 MG PO SCH ×3 (09:30→20:29)
[2023-06-01] MEDS: MetFORMIN HCL 500 MG TABLET PO SCH ×2 (09:30→17:54)
[2023-06-01] MEDS: METOPROLOL SUCCINATE 25 MG ER TABLET PO SCH (09:30)
[2023-06-01] MEDS: ATORVASTATIN CALCIUM 20 MG TABLET PO SCH (09:30)
[2023-06-01] MEDS: HEPARIN SODIUM,PORCINE 5,000 UNITS/ML VIAL SQ SCH ×3 (09:31→23:46)
[2023-06-01 15:17] LABS: BASOPHILS % (AUTO) 0.6 % (0.0-2.0); EOSINOPHILS % (AUTO) 1.2 % (1.0-6.0); HEMATOCRIT 38.4 % (41-53); HEMOGLOBIN 12.7 g/dL (13.5-17.5); LYMPHOCYTES # (AUTO) 2.4 K/uL (1.0-4.8); LYMPHOCYTES % (AUTO) 25.4 % (22.0-44.0); MEAN CORPUSCULAR HEMOGLOBIN 23.1 pg (26.0-34.0); MEAN CORPUSCULAR VOLUME 70 fL (80-100); MONOCYTES # (AUTO) 0.8 K/uL (0.1-1.0); MONOCYTES % (AUTO) 8.2 % (2.0-9.0); NEUTROPHILS # (AUTO) 6.2 K/uL (1.8-7.7); NEUTROPHILS % (AUTO) 64.6 % (40.0-70.0); PLATELET COUNT (AUTO) 409 K/uL (150-450); RED BLOOD CELL COUNT(AUTO) 5.49 MIL/uL (4.50-5.90); RED CELL DISTRIBUTION WIDTH 13.9 % (11.5-14.5); WHITE BLOOD COUNT (AUTO) 9.6 K/uL (4.5-11.0)
[2023-06-01 15:30] LABS: ANION GAP 9 mmol/L (8-16); CARBON DIOXIDE 24 mmol/L (22-29); CHLORIDE 92 mmol/L (98-107); GLUCOSE,RANDOM 122 mg/dL (70-110); SODIUM SERUM 125 mmol/L (136-145)
[2023-06-01 15:31] LABS: ALANINE AMINOTRANSFERASE 18 U/L (12-78); ALBUMIN 4.5 g/dL (3.4-5.0); ALKALINE PHOSPHATASE 135 U/L (46-116); ASPARTATE AMINOTRANSFERASE 15 U/L (15-37); BILIRUBIN,TOTAL 0.2 mg/dL (0.1-1.0); CALCIUM, TOTAL 9.5 mg/dL (8.8-10.5); CREATININE 0.56 mg/dL (0.60-1.30); GLOMERULAR FILTR. RATE CALC > 60 mL/min (>60); TOTAL PROTEIN, SERUM 8.7 g/dL (6.4-8.2); UREA NITROGEN, BLOOD 13 mg/dL (7-18)
[2023-06-01 15:52] VITALS: BP 110/70; PULSE 83; RESP 18; TEMP 97.8
[2023-06-01 18:21] LABS: RBC MORPHOLOGY COMMENT ABNORMAL RBC MORPH
[2023-06-01 19:50] VITALS: BP 118/78; PULSE 81; RESP 20; TEMP 98
[2023-06-02] MEDS: TraMADol HCL 50 MG TABLET PO PRN ×3 (00:47→20:49)
[2023-06-02 03:42] VITALS: BP 115/86; PULSE 89; RESP 18; TEMP 97.7
[2023-06-02] MEDS: LEVOTHYROXINE SODIUM 88 MCG TABLET PO SCH (06:15)
[2023-06-02 08:42] VITALS: BP 123/88; PULSE 86; RESP 18; TEMP 98.2
[2023-06-02] MEDS: ATORVASTATIN CALCIUM 20 MG TABLET PO SCH (09:28)
[2023-06-02] MEDS: MetFORMIN HCL 500 MG TABLET PO SCH ×2 (09:28→17:19)
[2023-06-02] MEDS: LISINOPRIL 20 MG TABLET PO SCH (09:28)
[2023-06-02] MEDS: DULoxetine HCL 20 MG CAPSULE PO SCH (09:28)
[2023-06-02] MEDS: PANTOPRAZOLE SODIUM 40 MG DR TABLET PO SCH (09:28)
[2023-06-02] MEDS: PENTOXIFYLLINE 400 MG PO SCH ×3 (09:28→20:47)
[2023-06-02] MEDS: FERROUS SULFATE 325 MG EC TABLET PO SCH (09:28)
[2023-06-02] MEDS: HEPARIN SODIUM,PORCINE 5,000 UNITS/ML VIAL SQ SCH ×3 (09:28→23:08)
[2023-06-02] MEDS: SODIUM CHLORIDE 1 GM TABLET PO SCH ×3 (09:28→23:07)
[2023-06-02] MEDS: LevETIRAcetam 250 MG TABLET PO SCH ×2 (09:29→20:47)
[2023-06-02] MEDS: METOPROLOL SUCCINATE 25 MG ER TABLET PO SCH (09:29)
[2023-06-02] MEDS: AMOX TR/POT CLAV 875 MG/125 MG TABLET PO SCH ×2 (09:29→20:46)
[2023-06-02 16:10] VITALS: BP 109/69; PULSE 87; RESP 18; TEMP 97.5
[2023-06-02 19:40] VITALS: BP 113/73; PULSE 82; RESP 18; TEMP 97.8
[2023-06-03 04:55] VITALS: BP 113/82; PULSE 88; RESP 18; TEMP 97.6
[2023-06-03] MEDS: LEVOTHYROXINE SODIUM 88 MCG TABLET PO SCH (05:28)
[2023-06-03] MEDS: MetFORMIN HCL 500 MG TABLET PO SCH ×2 (08:00→17:40)
[2023-06-03] MEDS: HEPARIN SODIUM,PORCINE 5,000 UNITS/ML VIAL SQ SCH ×3 (08:00→23:17)
[2023-06-03] MEDS: FERROUS SULFATE 325 MG EC TABLET PO SCH (08:00)
[2023-06-03] MEDS: SODIUM CHLORIDE 1 GM TABLET PO SCH ×3 (08:00→23:16)
[2023-06-03] MEDS: LISINOPRIL 20 MG TABLET PO SCH (09:00)
[2023-06-03] MEDS: METOPROLOL SUCCINATE 25 MG ER TABLET PO SCH (09:00)
[2023-06-03] MEDS: PENTOXIFYLLINE 400 MG PO SCH ×3 (09:00→21:35)
[2023-06-03] MEDS: ATORVASTATIN CALCIUM 20 MG TABLET PO SCH (09:00)
[2023-06-03] MEDS: DULoxetine HCL 20 MG CAPSULE PO SCH (09:00)
[2023-06-03] MEDS: AMOX TR/POT CLAV 875 MG/125 MG TABLET PO SCH ×2 (09:00→21:34)
[2023-06-03] MEDS: PANTOPRAZOLE SODIUM 40 MG DR TABLET PO SCH (09:00)
[2023-06-03] MEDS: LevETIRAcetam 250 MG TABLET PO SCH ×2 (09:00→21:34)
[2023-06-03 09:58] VITALS: BP 104/70; PULSE 87; RESP 18; TEMP 97.9
[2023-06-03 10:59] LABS: ANION GAP 11 mmol/L (8-16); CALCIUM, TOTAL 9.5 mg/dL (8.8-10.5); CARBON DIOXIDE 25 mmol/L (22-29); CHLORIDE 95 mmol/L (98-107); CREATININE 0.42 mg/dL (0.60-1.30); GLOMERULAR FILTR. RATE CALC > 60 mL/min (>60); GLUCOSE,RANDOM 127 mg/dL (70-110); POTASSIUM 3.8 mmol/L (3.5-5.1); SODIUM SERUM 131 mmol/L (136-145); UREA NITROGEN, BLOOD 9 mg/dL (7-18)
[2023-06-03 16:09] VITALS: BP 98/69; PULSE 88; RESP 20; TEMP 97.5
[2023-06-03 19:51] VITALS: BP 103/79; PULSE 86; RESP 18; TEMP 97.5
[2023-06-03] MEDS: TraMADol HCL 50 MG TABLET PO PRN (21:44)
[2023-06-04 04:33] VITALS: BP 107/66; PULSE 84; RESP 18; TEMP 98.5
[2023-06-04] MEDS: LEVOTHYROXINE SODIUM 88 MCG TABLET PO SCH (06:56)
[2023-06-04] MEDS: PENTOXIFYLLINE 400 MG PO SCH ×3 (08:32→20:35)
[2023-06-04] MEDS: AMOX TR/POT CLAV 875 MG/125 MG TABLET PO SCH ×2 (08:32→20:35)
[2023-06-04] MEDS: PANTOPRAZOLE SODIUM 40 MG DR TABLET PO SCH (08:33)
[2023-06-04] MEDS: DULoxetine HCL 20 MG CAPSULE PO SCH (08:33)
[2023-06-04] MEDS: LevETIRAcetam 250 MG TABLET PO SCH ×2 (08:33→20:35)
[2023-06-04] MEDS: FERROUS SULFATE 325 MG EC TABLET PO SCH (08:33)
[2023-06-04] MEDS: LISINOPRIL 20 MG TABLET PO SCH (08:33)
[2023-06-04] MEDS: ATORVASTATIN CALCIUM 20 MG TABLET PO SCH (08:33)
[2023-06-04] MEDS: SODIUM CHLORIDE 1 GM TABLET PO SCH ×3 (08:34→23:56)
[2023-06-04] MEDS: MetFORMIN HCL 500 MG TABLET PO SCH ×2 (08:34→17:03)
[2023-06-04] MEDS: HEPARIN SODIUM,PORCINE 5,000 UNITS/ML VIAL SQ SCH ×3 (08:34→23:56)
[2023-06-04] MEDS: METOPROLOL SUCCINATE 25 MG ER TABLET PO SCH (08:35)
[2023-06-04 09:02] VITALS: BP 106/73; PULSE 91; RESP 19; TEMP 97.6
[2023-06-04] MEDS ORDERED: OxyCODONE HCL 5 MG IR TABLET PO PRN (18:00)
[2023-06-04 18:06] VITALS: BP 102/68; PULSE 91; RESP 18; TEMP 97.8
[2023-06-04 19:40] VITALS: BP 106/69; PULSE 93; RESP 18; TEMP 98.2
[2023-06-05 03:44] VITALS: BP 104/70; PULSE 85; RESP 20; TEMP 97.5
[2023-06-05] MEDS: LEVOTHYROXINE SODIUM 88 MCG TABLET PO SCH (06:22)
[2023-06-05] MEDS: PENTOXIFYLLINE 400 MG PO SCH ×3 (08:24→20:23)
[2023-06-05] MEDS: DULoxetine HCL 20 MG CAPSULE PO SCH (08:25)
[2023-06-05] MEDS: LISINOPRIL 20 MG TABLET PO SCH (08:25)
[2023-06-05] MEDS: PANTOPRAZOLE SODIUM 40 MG DR TABLET PO SCH (08:25)
[2023-06-05] MEDS: ATORVASTATIN CALCIUM 20 MG TABLET PO SCH (08:25)
[2023-06-05] MEDS: METOPROLOL SUCCINATE 25 MG ER TABLET PO SCH (08:25)
[2023-06-05] MEDS: SODIUM CHLORIDE 1 GM TABLET PO SCH ×2 (08:25→16:41)
[2023-06-05] MEDS: AMOX TR/POT CLAV 875 MG/125 MG TABLET PO SCH ×2 (08:26→20:23)
[2023-06-05] MEDS: FERROUS SULFATE 325 MG EC TABLET PO SCH (08:26)
[2023-06-05] MEDS: MetFORMIN HCL 500 MG TABLET PO SCH ×2 (08:26→18:29)
[2023-06-05] MEDS: LevETIRAcetam 250 MG TABLET PO SCH ×2 (08:26→20:24)
[2023-06-05] MEDS: HEPARIN SODIUM,PORCINE 5,000 UNITS/ML VIAL SQ SCH ×2 (08:26→17:14)
[2023-06-05 08:31] VITALS: BP 119/71; PULSE 84; RESP 20; TEMP 98.3
[2023-06-05 16:02] VITALS: BP 115/75; PULSE 84; RESP 18; TEMP 98
[2023-06-05 20:17] VITALS: BP 101/67; PULSE 76; RESP 18; TEMP 98.1
[2023-06-05] MEDS: OxyCODONE HCL 10 MG IR TABLET PO PRN (20:23)
[2023-06-06] MEDS: HEPARIN SODIUM,PORCINE 5,000 UNITS/ML VIAL SQ SCH ×4 (00:32→23:00)
[2023-06-06] MEDS: SODIUM CHLORIDE 1 GM TABLET PO SCH ×4 (00:32→23:01)
[2023-06-06 05:40] VITALS: BP 110/72; PULSE 74; RESP 18; TEMP 98.4
[2023-06-06] MEDS: LEVOTHYROXINE SODIUM 88 MCG TABLET PO SCH (06:02)
[2023-06-06] MEDS: METOPROLOL SUCCINATE 25 MG ER TABLET PO SCH (09:00)
[2023-06-06] MEDS: LISINOPRIL 20 MG TABLET PO SCH (09:00)
[2023-06-06] MEDS: AMOX TR/POT CLAV 875 MG/125 MG TABLET PO SCH ×2 (09:04→20:21)
[2023-06-06] MEDS: PANTOPRAZOLE SODIUM 40 MG DR TABLET PO SCH (09:04)
[2023-06-06] MEDS: MetFORMIN HCL 500 MG TABLET PO SCH ×2 (09:04→17:37)
[2023-06-06] MEDS: DULoxetine HCL 20 MG CAPSULE PO SCH (09:04)
[2023-06-06] MEDS: FERROUS SULFATE 325 MG EC TABLET PO SCH (09:04)
[2023-06-06] MEDS: ATORVASTATIN CALCIUM 20 MG TABLET PO SCH (09:04)
[2023-06-06] MEDS: PENTOXIFYLLINE 400 MG PO SCH ×3 (09:04→20:21)
[2023-06-06] MEDS: LevETIRAcetam 250 MG TABLET PO SCH ×2 (09:05→20:21)
[2023-06-06 10:00] VITALS: BP 113/74; PULSE 83; RESP 18; TEMP 97.6
[2023-06-06 17:46] VITALS: BP 107/68; PULSE 85; RESP 18; TEMP 98.1
[2023-06-06 20:16] VITALS: BP 108/74; PULSE 86; RESP 18; TEMP 97.8
[2023-06-06] MEDS: OxyCODONE HCL 10 MG IR TABLET PO PRN (20:21)
[2023-06-07 04:07] VITALS: BP 112/76; PULSE 84; RESP 18; TEMP 97.7
[2023-06-07] MEDS: OxyCODONE HCL 10 MG IR TABLET PO PRN ×3 (05:16→21:27)
[2023-06-07] MEDS: LEVOTHYROXINE SODIUM 88 MCG TABLET PO SCH (06:08)
[2023-06-07 06:33] LABS: BASOPHILS % (AUTO) 1.3 % (0.0-2.0); HEMATOCRIT 34.8 % (41-53); HEMOGLOBIN 11.1 g/dL (13.5-17.5); LYMPHOCYTES # (AUTO) 3.5 K/uL (1.0-4.8); LYMPHOCYTES % (AUTO) 39.5 % (22.0-44.0); MEAN CORPUSCULAR HEMOGLOBIN 22.9 pg (26.0-34.0); MEAN CORPUSCULAR VOLUME 72 fL (80-100); MONOCYTES # (AUTO) 0.5 K/uL (0.1-1.0); MONOCYTES % (AUTO) 6.1 % (2.0-9.0); NEUTROPHILS # (AUTO) 4.4 K/uL (1.8-7.7); NEUTROPHILS % (AUTO) 50.1 % (40.0-70.0); PLATELET COUNT (AUTO) 350 K/uL (150-450); RED BLOOD CELL COUNT(AUTO) 4.86 MIL/uL (4.50-5.90); RED CELL DISTRIBUTION WIDTH 14.3 % (11.5-14.5); WHITE BLOOD COUNT (AUTO) 8.9 K/uL (4.5-11.0)
[2023-06-07 07:01] LABS: ALANINE AMINOTRANSFERASE 19 U/L (12-78); ALBUMIN 4.1 g/dL (3.4-5.0); ALKALINE PHOSPHATASE 111 U/L (46-116); ANION GAP 10 mmol/L (8-16); ASPARTATE AMINOTRANSFERASE 15 U/L (15-37); BILIRUBIN,TOTAL 0.2 mg/dL (0.1-1.0); CALCIUM, TOTAL 9.2 mg/dL (8.8-10.5); CARBON DIOXIDE 26 mmol/L (22-29); CHLORIDE 98 mmol/L (98-107); GLOMERULAR FILTR. RATE CALC > 60 mL/min (>60); GLUCOSE,RANDOM 91 mg/dL (70-110); POTASSIUM 3.9 mmol/L (3.5-5.1); SODIUM SERUM 134 mmol/L (136-145); TOTAL PROTEIN, SERUM 7.9 g/dL (6.4-8.2); UREA NITROGEN, BLOOD 5 mg/dL (7-18)
[2023-06-07 08:07] VITALS: BP 104/68; PULSE 89; RESP 18; TEMP 97.8
[2023-06-07] MEDS: MetFORMIN HCL 500 MG TABLET PO SCH ×2 (08:44→17:55)
[2023-06-07] MEDS: FERROUS SULFATE 325 MG EC TABLET PO SCH (08:44)
[2023-06-07] MEDS: HEPARIN SODIUM,PORCINE 5,000 UNITS/ML VIAL SQ SCH ×3 (08:45→23:43)
[2023-06-07] MEDS: LevETIRAcetam 250 MG TABLET PO SCH ×2 (08:45→20:44)
[2023-06-07] MEDS: AMOX TR/POT CLAV 875 MG/125 MG TABLET PO SCH ×2 (08:45→20:44)
[2023-06-07] MEDS: ATORVASTATIN CALCIUM 20 MG TABLET PO SCH (08:45)
[2023-06-07] MEDS: PENTOXIFYLLINE 400 MG PO SCH ×3 (08:46→20:44)
[2023-06-07] MEDS: DULoxetine HCL 20 MG CAPSULE PO SCH (08:46)
[2023-06-07] MEDS: SODIUM CHLORIDE 1 GM TABLET PO SCH ×3 (08:49→23:43)
[2023-06-07] MEDS: PANTOPRAZOLE SODIUM 40 MG DR TABLET PO SCH (08:49)
[2023-06-07] MEDS: METOPROLOL SUCCINATE 25 MG ER TABLET PO SCH (09:00)
[2023-06-07] MEDS: LISINOPRIL 20 MG TABLET PO SCH (09:00)
[2023-06-07 16:06] VITALS: BP 112/66; PULSE 81; RESP 18; TEMP 98.4
[2023-06-07 20:00] VITALS: BP 108/75; PULSE 83; RESP 18; TEMP 98
[2023-06-08 04:59] VITALS: BP 119/87; PULSE 85; RESP 18; TEMP 98.5
[2023-06-08] MEDS: OxyCODONE HCL 10 MG IR TABLET PO PRN ×2 (04:59→17:00)
[2023-06-08] MEDS: LEVOTHYROXINE SODIUM 88 MCG TABLET PO SCH (06:12)
[2023-06-08 07:53] VITALS: BP 142/98; PULSE 88; RESP 19; TEMP 98.2
[2023-06-08] MEDS: PANTOPRAZOLE SODIUM 40 MG DR TABLET PO SCH (08:16)
[2023-06-08] MEDS: ATORVASTATIN CALCIUM 20 MG TABLET PO SCH (08:16)
[2023-06-08] MEDS: FERROUS SULFATE 325 MG EC TABLET PO SCH (08:16)
[2023-06-08] MEDS: LISINOPRIL 20 MG TABLET PO SCH (08:16)
[2023-06-08] MEDS: MetFORMIN HCL 500 MG TABLET PO SCH ×3 (08:16→17:46)
[2023-06-08] MEDS: HEPARIN SODIUM,PORCINE 5,000 UNITS/ML VIAL SQ SCH ×3 (08:16→23:23)
[2023-06-08] MEDS: PENTOXIFYLLINE 400 MG PO SCH ×3 (08:20→20:36)
[2023-06-08] MEDS: SODIUM CHLORIDE 1 GM TABLET PO SCH ×3 (08:20→23:23)
[2023-06-08] MEDS: DULoxetine HCL 20 MG CAPSULE PO SCH (08:21)
[2023-06-08] MEDS: AMOX TR/POT CLAV 875 MG/125 MG TABLET PO SCH ×2 (08:21→20:36)
[2023-06-08] MEDS: METOPROLOL SUCCINATE 25 MG ER TABLET PO SCH (08:21)
[2023-06-08] MEDS: LevETIRAcetam 250 MG TABLET PO SCH ×2 (08:21→20:36)
[2023-06-08 16:18] VITALS: BP 116/77; PULSE 81; RESP 19; TEMP 98.2
[2023-06-08 19:42] VITALS: BP 103/68; PULSE 73; RESP 18; TEMP 97.8
[2023-06-09] MEDS: OxyCODONE HCL 10 MG IR TABLET PO PRN ×3 (01:51→22:21)
[2023-06-09 04:13] VITALS: BP 108/63; PULSE 86; RESP 18; TEMP 98.1
[2023-06-09] MEDS: LEVOTHYROXINE SODIUM 88 MCG TABLET PO SCH (06:10)
[2023-06-09] MEDS: FERROUS SULFATE 325 MG EC TABLET PO SCH (08:08)
[2023-06-09] MEDS: METOPROLOL SUCCINATE 25 MG ER TABLET PO SCH (08:08)
[2023-06-09] MEDS: PANTOPRAZOLE SODIUM 40 MG DR TABLET PO SCH (08:08)
[2023-06-09] MEDS: SODIUM CHLORIDE 1 GM TABLET PO SCH ×3 (08:08→23:22)
[2023-06-09] MEDS: DULoxetine HCL 20 MG CAPSULE PO SCH (08:08)
[2023-06-09] MEDS: HEPARIN SODIUM,PORCINE 5,000 UNITS/ML VIAL SQ SCH ×3 (08:08→23:22)
[2023-06-09] MEDS: MetFORMIN HCL 500 MG TABLET PO SCH ×2 (08:08→17:17)
[2023-06-09] MEDS: LevETIRAcetam 250 MG TABLET PO SCH ×2 (08:08→20:12)
[2023-06-09] MEDS: ATORVASTATIN CALCIUM 20 MG TABLET PO SCH (08:08)
[2023-06-09] MEDS: AMOX TR/POT CLAV 875 MG/125 MG TABLET PO SCH ×2 (08:08→20:12)
[2023-06-09] MEDS: PENTOXIFYLLINE 400 MG PO SCH ×3 (08:08→20:12)
[2023-06-09] MEDS: LISINOPRIL 20 MG TABLET PO SCH (08:08)
[2023-06-09 09:38] VITALS: BP 108/77; PULSE 78; RESP 20; TEMP 97.9
[2023-06-09 16:06] VITALS: BP 96/67; PULSE 76; RESP 20; TEMP 97.5
[2023-06-09 19:25] VITALS: BP 97/60; PULSE 75; RESP 20; TEMP 98.7
[2023-06-09 22:13] VITALS: BP 100/72; PULSE 73; RESP 18; TEMP 98.2
[2023-06-10 04:11] VITALS: BP 114/63; PULSE 76; RESP 18; TEMP 97.5
[2023-06-10] MEDS: LEVOTHYROXINE SODIUM 88 MCG TABLET PO SCH (05:38)
[2023-06-10] MEDS: HEPARIN SODIUM,PORCINE 5,000 UNITS/ML VIAL SQ SCH ×3 (08:38→23:20)
[2023-06-10] MEDS: MetFORMIN HCL 500 MG TABLET PO SCH ×2 (08:39→17:57)
[2023-06-10] MEDS: PENTOXIFYLLINE 400 MG PO SCH ×3 (08:39→20:09)
[2023-06-10] MEDS: METOPROLOL SUCCINATE 25 MG ER TABLET PO SCH (08:39)
[2023-06-10] MEDS: SODIUM CHLORIDE 1 GM TABLET PO SCH ×3 (08:39→23:20)
[2023-06-10] MEDS: LevETIRAcetam 250 MG TABLET PO SCH ×2 (08:39→20:09)
[2023-06-10] MEDS: ATORVASTATIN CALCIUM 20 MG TABLET PO SCH (08:39)
[2023-06-10] MEDS: DULoxetine HCL 20 MG CAPSULE PO SCH (08:39)
[2023-06-10] MEDS: FERROUS SULFATE 325 MG EC TABLET PO SCH (08:39)
[2023-06-10] MEDS: LISINOPRIL 20 MG TABLET PO SCH (08:39)
[2023-06-10] MEDS: PANTOPRAZOLE SODIUM 40 MG DR TABLET PO SCH (08:40)
[2023-06-10] MEDS: AMOX TR/POT CLAV 875 MG/125 MG TABLET PO SCH ×2 (08:40→20:09)
[2023-06-10 09:19] VITALS: BP 112/74; PULSE 87; RESP 20; TEMP 97.8
[2023-06-10] MEDS: OxyCODONE HCL 10 MG IR TABLET PO PRN ×2 (13:14→20:14)
[2023-06-10 20:12] VITALS: BP 123/82; PULSE 85; RESP 20; TEMP 97.8
[2023-06-11] MEDS: OxyCODONE HCL 10 MG IR TABLET PO PRN ×3 (03:42→17:52)
[2023-06-11 05:30] VITALS: BP 105/79; PULSE 87; RESP 20; TEMP 97.9
[2023-06-11] MEDS: LEVOTHYROXINE SODIUM 88 MCG TABLET PO SCH (06:38)
[2023-06-11 08:15] VITALS: BP 109/75; PULSE 82; RESP 18; TEMP 98.2
[2023-06-11] MEDS: ATORVASTATIN CALCIUM 20 MG TABLET PO SCH (08:28)
[2023-06-11] MEDS: AMOX TR/POT CLAV 875 MG/125 MG TABLET PO SCH ×2 (08:29→20:16)
[2023-06-11] MEDS: PENTOXIFYLLINE 400 MG PO SCH ×3 (08:29→20:15)
[2023-06-11] MEDS: MetFORMIN HCL 500 MG TABLET PO SCH ×2 (08:29→17:47)
[2023-06-11] MEDS: PANTOPRAZOLE SODIUM 40 MG DR TABLET PO SCH (08:29)
[2023-06-11] MEDS: FERROUS SULFATE 325 MG EC TABLET PO SCH (08:29)
[2023-06-11] MEDS: LISINOPRIL 20 MG TABLET PO SCH (08:29)
[2023-06-11] MEDS: HEPARIN SODIUM,PORCINE 5,000 UNITS/ML VIAL SQ SCH ×3 (08:29→23:48)
[2023-06-11] MEDS: SODIUM CHLORIDE 1 GM TABLET PO SCH ×3 (08:29→23:44)
[2023-06-11] MEDS: LevETIRAcetam 250 MG TABLET PO SCH ×2 (08:29→20:16)
[2023-06-11] MEDS: DULoxetine HCL 20 MG CAPSULE PO SCH (08:29)
[2023-06-11] MEDS: METOPROLOL SUCCINATE 25 MG ER TABLET PO SCH (08:35)
[2023-06-11] MEDS: ETHYL ALCOHOL 62% ANTISEPTIC NASAL SANITIZER 0.6 ML AMPUL NASAL SCH ×2 (10:43→20:15)
[2023-06-11 15:20] VITALS: BP 105/70; PULSE 89; RESP 16; TEMP 97.7
[2023-06-11 20:11] VITALS: BP 109/74; PULSE 92; RESP 18; TEMP 98.3
[2023-06-12] MEDS: OxyCODONE HCL 10 MG IR TABLET PO PRN ×3 (03:46→21:05)
[2023-06-12 05:39] VITALS: BP 109/76; PULSE 87; RESP 18; TEMP 98.5
[2023-06-12] MEDS: LEVOTHYROXINE SODIUM 88 MCG TABLET PO SCH (06:09)
[2023-06-12] MEDS: PANTOPRAZOLE SODIUM 40 MG DR TABLET PO SCH (08:47)
[2023-06-12] MEDS: AMOX TR/POT CLAV 875 MG/125 MG TABLET PO SCH ×2 (08:47→19:58)
[2023-06-12] MEDS: MetFORMIN HCL 500 MG TABLET PO SCH ×2 (08:47→17:34)
[2023-06-12] MEDS: HEPARIN SODIUM,PORCINE 5,000 UNITS/ML VIAL SQ SCH ×2 (08:48→16:07)
[2023-06-12] MEDS: LISINOPRIL 20 MG TABLET PO SCH (08:48)
[2023-06-12] MEDS: SODIUM CHLORIDE 1 GM TABLET PO SCH ×2 (08:48→16:07)
[2023-06-12] MEDS: PENTOXIFYLLINE 400 MG PO SCH ×3 (08:48→19:59)
[2023-06-12] MEDS: ATORVASTATIN CALCIUM 20 MG TABLET PO SCH (08:48)
[2023-06-12] MEDS: LevETIRAcetam 250 MG TABLET PO SCH ×2 (08:48→19:59)
[2023-06-12] MEDS: FERROUS SULFATE 325 MG EC TABLET PO SCH (08:48)
[2023-06-12] MEDS: DULoxetine HCL 20 MG CAPSULE PO SCH (08:49)
[2023-06-12] MEDS: METOPROLOL SUCCINATE 25 MG ER TABLET PO SCH (08:49)
[2023-06-12 08:50] VITALS: BP 116/78; PULSE 88; RESP 18; TEMP 97.7
[2023-06-12] MEDS: ETHYL ALCOHOL 62% ANTISEPTIC NASAL SANITIZER 0.6 ML AMPUL NASAL SCH ×2 (08:56→19:59)
[2023-06-12 12:51] LABS: GLUCOMETER DEV NAME(LOC) 4E.2; GLUCOSE,POINT OF CARE 132 MG/DL (70-110)
[2023-06-12 19:47] VITALS: BP 102/72; PULSE 79; RESP 18; TEMP 97.7
[2023-06-13] MEDS: SODIUM CHLORIDE 1 GM TABLET PO SCH ×4 (00:17→23:32)
[2023-06-13] MEDS: HEPARIN SODIUM,PORCINE 5,000 UNITS/ML VIAL SQ SCH ×4 (00:20→23:32)
[2023-06-13 03:33] VITALS: BP 127/79; PULSE 101; RESP 18; TEMP 98
[2023-06-13] MEDS: LEVOTHYROXINE SODIUM 88 MCG TABLET PO SCH (05:48)
[2023-06-13] MEDS: LevETIRAcetam 250 MG TABLET PO SCH ×2 (08:27→20:10)
[2023-06-13] MEDS: LISINOPRIL 20 MG TABLET PO SCH (08:27)
[2023-06-13] MEDS: FERROUS SULFATE 325 MG EC TABLET PO SCH (08:27)
[2023-06-13] MEDS: DULoxetine HCL 20 MG CAPSULE PO SCH (08:27)
[2023-06-13] MEDS: AMOX TR/POT CLAV 875 MG/125 MG TABLET PO SCH (08:27)
[2023-06-13] MEDS: PANTOPRAZOLE SODIUM 40 MG DR TABLET PO SCH (08:27)
[2023-06-13] MEDS: PENTOXIFYLLINE 400 MG PO SCH ×3 (08:27→20:10)
[2023-06-13] MEDS: OxyCODONE HCL 10 MG IR TABLET PO PRN ×2 (08:28→20:10)
[2023-06-13] MEDS: ATORVASTATIN CALCIUM 20 MG TABLET PO SCH (08:28)
[2023-06-13] MEDS: MetFORMIN HCL 500 MG TABLET PO SCH ×2 (08:28→17:55)
[2023-06-13] MEDS: METOPROLOL SUCCINATE 25 MG ER TABLET PO SCH (08:30)
[2023-06-13] MEDS: ETHYL ALCOHOL 62% ANTISEPTIC NASAL SANITIZER 0.6 ML AMPUL NASAL SCH ×2 (08:31→20:10)
[2023-06-13 08:41] VITALS: BP 95/69; PULSE 93; RESP 19; TEMP 98.1
[2023-06-13 16:55] VITALS: BP 95/66; PULSE 83; RESP 18; TEMP 98
[2023-06-13 19:57] VITALS: BP 108/67; PULSE 80; RESP 18; TEMP 97.8
[2023-06-14 04:01] VITALS: BP 110/65; PULSE 81; RESP 18; TEMP 98.3
[2023-06-14] MEDS: LEVOTHYROXINE SODIUM 88 MCG TABLET PO SCH (05:33)
[2023-06-14] MEDS: DULoxetine HCL 20 MG CAPSULE PO SCH (08:54)
[2023-06-14] MEDS: ETHYL ALCOHOL 62% ANTISEPTIC NASAL SANITIZER 0.6 ML AMPUL NASAL SCH ×2 (08:54→20:32)
[2023-06-14] MEDS: PENTOXIFYLLINE 400 MG PO SCH ×3 (08:54→20:32)
[2023-06-14] MEDS: METOPROLOL SUCCINATE 25 MG ER TABLET PO SCH (08:55)
[2023-06-14] MEDS: HEPARIN SODIUM,PORCINE 5,000 UNITS/ML VIAL SQ SCH ×3 (08:55→23:07)
[2023-06-14] MEDS: LISINOPRIL 20 MG TABLET PO SCH (08:55)
[2023-06-14] MEDS: PANTOPRAZOLE SODIUM 40 MG DR TABLET PO SCH (08:55)
[2023-06-14] MEDS: ATORVASTATIN CALCIUM 20 MG TABLET PO SCH (08:55)
[2023-06-14] MEDS: FERROUS SULFATE 325 MG EC TABLET PO SCH (08:55)
[2023-06-14] MEDS: LevETIRAcetam 250 MG TABLET PO SCH ×2 (08:55→20:31)
[2023-06-14] MEDS: SODIUM CHLORIDE 1 GM TABLET PO SCH ×3 (08:55→23:07)
[2023-06-14] MEDS: MetFORMIN HCL 500 MG TABLET PO SCH ×2 (08:55→17:26)
[2023-06-14] MEDS: OxyCODONE HCL 10 MG IR TABLET PO PRN ×2 (09:12→20:31)
[2023-06-14 09:34] VITALS: BP 101/74; PULSE 92; RESP 18; TEMP 97.9
[2023-06-14 16:07] VITALS: BP 107/77; PULSE 76; RESP 18; TEMP 97.5
[2023-06-14 20:56] VITALS: BP 120/70; PULSE 83; RESP 20; TEMP 98
[2023-06-15 03:28] VITALS: BP 94/65; PULSE 82; RESP 18; TEMP 98
[2023-06-15] MEDS: LEVOTHYROXINE SODIUM 88 MCG TABLET PO SCH (05:49)
[2023-06-15 06:02] VITALS: BP 106/72; PULSE 84; RESP 16; TEMP 98.2
[2023-06-15] MEDS: OxyCODONE HCL 10 MG IR TABLET PO PRN ×2 (06:04→20:22)
[2023-06-15] MEDS: ETHYL ALCOHOL 62% ANTISEPTIC NASAL SANITIZER 0.6 ML AMPUL NASAL SCH ×2 (09:00→20:14)
[2023-06-15] MEDS: LISINOPRIL 20 MG TABLET PO SCH (09:14)
[2023-06-15] MEDS: HEPARIN SODIUM,PORCINE 5,000 UNITS/ML VIAL SQ SCH ×3 (09:14→23:57)
[2023-06-15] MEDS: METOPROLOL SUCCINATE 25 MG ER TABLET PO SCH (09:15)
[2023-06-15] MEDS: PENTOXIFYLLINE 400 MG PO SCH ×3 (09:15→20:14)
[2023-06-15] MEDS: ATORVASTATIN CALCIUM 20 MG TABLET PO SCH (09:15)
[2023-06-15] MEDS: PANTOPRAZOLE SODIUM 40 MG DR TABLET PO SCH (09:15)
[2023-06-15] MEDS: SODIUM CHLORIDE 1 GM TABLET PO SCH ×3 (09:15→23:57)
[2023-06-15] MEDS: FERROUS SULFATE 325 MG EC TABLET PO SCH (09:15)
[2023-06-15] MEDS: LevETIRAcetam 250 MG TABLET PO SCH ×2 (09:15→20:15)
[2023-06-15] MEDS: MetFORMIN HCL 500 MG TABLET PO SCH ×2 (09:15→17:12)
[2023-06-15] MEDS: DULoxetine HCL 20 MG CAPSULE PO SCH (09:15)
[2023-06-15 09:18] VITALS: BP 115/86; PULSE 86; RESP 18; TEMP 98.6
[2023-06-15 15:44] LABS: BASOPHILS % (AUTO) 0.9 % (0.0-2.0); EOSINOPHILS % (AUTO) 2.7 % (1.0-6.0); HEMATOCRIT 36.8 % (41-53); HEMOGLOBIN 11.7 g/dL (13.5-17.5); LYMPHOCYTES # (AUTO) 2.5 K/uL (1.0-4.8); LYMPHOCYTES % (AUTO) 28.7 % (22.0-44.0); MEAN CORPUSCULAR VOLUME 72 fL (80-100); MONOCYTES # (AUTO) 0.7 K/uL (0.1-1.0); MONOCYTES % (AUTO) 8.5 % (2.0-9.0); NEUTROPHILS # (AUTO) 5.2 K/uL (1.8-7.7); NEUTROPHILS % (AUTO) 59.2 % (40.0-70.0); PLATELET COUNT (AUTO) 348 K/uL (150-450); RED BLOOD CELL COUNT(AUTO) 5.11 MIL/uL (4.50-5.90); RED CELL DISTRIBUTION WIDTH 14.3 % (11.5-14.5); WHITE BLOOD COUNT (AUTO) 8.8 K/uL (4.5-11.0)
[2023-06-15 15:51] LABS: ANION GAP 10 mmol/L (8-16); CALCIUM, TOTAL 9.3 mg/dL (8.8-10.5); CARBON DIOXIDE 28 mmol/L (22-29); CHLORIDE 98 mmol/L (98-107); CREATININE 0.49 mg/dL (0.60-1.30); GLOMERULAR FILTR. RATE CALC > 60 mL/min (>60); GLUCOSE,RANDOM 91 mg/dL (70-110); POTASSIUM 3.8 mmol/L (3.5-5.1); SODIUM SERUM 136 mmol/L (136-145); UREA NITROGEN, BLOOD 6 mg/dL (7-18)
[2023-06-15 16:06] LABS: RBC MORPHOLOGY COMMENT ABNORMAL RBC MORPH
[2023-06-15 17:06] VITALS: BP 130/62; PULSE 96; RESP 20; TEMP 97.8
[2023-06-15 20:42] VITALS: BP 110/69; PULSE 86; RESP 20; TEMP 98.6
[2023-06-16] MEDS: TraMADol HCL 50 MG TABLET PO PRN (00:03)
[2023-06-16 04:26] VITALS: BP 108/72; PULSE 94; RESP 20; TEMP 98.1
[2023-06-16] MEDS: LEVOTHYROXINE SODIUM 88 MCG TABLET PO SCH (05:53)
[2023-06-16 08:05] VITALS: BP 105/74; PULSE 90; RESP 19; TEMP 98.2
[2023-06-16] MEDS: ETHYL ALCOHOL 62% ANTISEPTIC NASAL SANITIZER 0.6 ML AMPUL NASAL SCH ×2 (09:00→20:00)
[2023-06-16] MEDS: LevETIRAcetam 250 MG TABLET PO SCH ×2 (09:31→20:01)
[2023-06-16] MEDS: FERROUS SULFATE 325 MG EC TABLET PO SCH (09:31)
[2023-06-16] MEDS: ATORVASTATIN CALCIUM 20 MG TABLET PO SCH (09:31)
[2023-06-16] MEDS: MetFORMIN HCL 500 MG TABLET PO SCH ×2 (09:31→18:01)
[2023-06-16] MEDS: SODIUM CHLORIDE 1 GM TABLET PO SCH ×3 (09:32→23:47)
[2023-06-16] MEDS: PANTOPRAZOLE SODIUM 40 MG DR TABLET PO SCH (09:32)
[2023-06-16] MEDS: LISINOPRIL 20 MG TABLET PO SCH (09:32)
[2023-06-16] MEDS: METOPROLOL SUCCINATE 25 MG ER TABLET PO SCH (09:32)
[2023-06-16] MEDS: PENTOXIFYLLINE 400 MG PO SCH ×3 (09:32→20:00)
[2023-06-16] MEDS: DULoxetine HCL 20 MG CAPSULE PO SCH (09:32)
[2023-06-16] MEDS: HEPARIN SODIUM,PORCINE 5,000 UNITS/ML VIAL SQ SCH ×3 (09:38→23:49)
[2023-06-16] MEDS: OxyCODONE HCL 10 MG IR TABLET PO PRN ×2 (11:14→20:00)
[2023-06-16 11:15] VITALS: BP 100/73; PULSE 97; RESP 19
[2023-06-16 16:07] VITALS: BP 90/67; PULSE 80; RESP 19; TEMP 98.2
[2023-06-16 16:35] VITALS: BP 94/62; PULSE 74; RESP 18
[2023-06-16 20:50] VITALS: BP 93/63; PULSE 81; RESP 18; TEMP 98.1
[2023-06-17] MEDS: TraMADol HCL 50 MG TABLET PO PRN ×2 (02:58→13:25)
[2023-06-17 03:26] VITALS: BP 107/76; PULSE 80; RESP 18; TEMP 98
[2023-06-17] MEDS: LEVOTHYROXINE SODIUM 88 MCG TABLET PO SCH (05:59)
[2023-06-17 08:37] VITALS: BP 102/77; PULSE 87; RESP 19; TEMP 98.1
[2023-06-17] MEDS: DULoxetine HCL 20 MG CAPSULE PO SCH (09:01)
[2023-06-17] MEDS: LevETIRAcetam 250 MG TABLET PO SCH ×2 (09:02→20:24)
[2023-06-17] MEDS: METOPROLOL SUCCINATE 25 MG ER TABLET PO SCH (09:02)
[2023-06-17] MEDS: MetFORMIN HCL 500 MG TABLET PO SCH ×2 (09:02→17:29)
[2023-06-17] MEDS: LISINOPRIL 20 MG TABLET PO SCH (09:02)
[2023-06-17] MEDS: SODIUM CHLORIDE 1 GM TABLET PO SCH ×3 (09:02→23:08)
[2023-06-17] MEDS: OxyCODONE HCL 10 MG IR TABLET PO PRN ×2 (09:02→23:08)
[2023-06-17] MEDS: ATORVASTATIN CALCIUM 20 MG TABLET PO SCH (09:02)
[2023-06-17] MEDS: HEPARIN SODIUM,PORCINE 5,000 UNITS/ML VIAL SQ SCH ×3 (09:02→23:12)
[2023-06-17] MEDS: PANTOPRAZOLE SODIUM 40 MG DR TABLET PO SCH (09:02)
[2023-06-17] MEDS: FERROUS SULFATE 325 MG EC TABLET PO SCH (09:02)
[2023-06-17] MEDS: PENTOXIFYLLINE 400 MG PO SCH ×3 (09:02→20:24)
[2023-06-17] MEDS: ETHYL ALCOHOL 62% ANTISEPTIC NASAL SANITIZER 0.6 ML AMPUL NASAL SCH ×2 (09:08→20:24)
[2023-06-17 18:17] VITALS: BP 115/64; PULSE 85; RESP 18; TEMP 97.1
[2023-06-17 20:05] VITALS: BP 95/62; PULSE 62; RESP 18; TEMP 97.7
[2023-06-18 04:27] VITALS: BP 98/66; PULSE 57; RESP 18; TEMP 98.5
[2023-06-18] MEDS: LEVOTHYROXINE SODIUM 88 MCG TABLET PO SCH (06:33)
[2023-06-18 07:35] VITALS: BP 92/74; PULSE 95; RESP 17; TEMP 98
[2023-06-18] MEDS: LISINOPRIL 20 MG TABLET PO SCH (09:00)
[2023-06-18] MEDS: METOPROLOL SUCCINATE 25 MG ER TABLET PO SCH (09:00)
[2023-06-18] MEDS: PANTOPRAZOLE SODIUM 40 MG DR TABLET PO SCH (09:01)
[2023-06-18] MEDS: MetFORMIN HCL 500 MG TABLET PO SCH ×2 (09:01→17:00)
[2023-06-18] MEDS: HEPARIN SODIUM,PORCINE 5,000 UNITS/ML VIAL SQ SCH ×2 (09:01→16:00)
[2023-06-18] MEDS: FERROUS SULFATE 325 MG EC TABLET PO SCH (09:01)
[2023-06-18] MEDS: PENTOXIFYLLINE 400 MG PO SCH (09:01)
[2023-06-18] MEDS: ETHYL ALCOHOL 62% ANTISEPTIC NASAL SANITIZER 0.6 ML AMPUL NASAL SCH ×2 (09:01→20:35)
[2023-06-18] MEDS: DULoxetine HCL 20 MG CAPSULE PO SCH (09:02)
[2023-06-18] MEDS: ATORVASTATIN CALCIUM 20 MG TABLET PO SCH (09:02)
[2023-06-18] MEDS: SODIUM CHLORIDE 1 GM TABLET PO SCH ×2 (09:02→16:00)
[2023-06-18] MEDS: LevETIRAcetam 250 MG TABLET PO SCH ×2 (09:02→20:35)
[2023-06-18] MEDS ORDERED: DEXTROSE 50%-WATER 25 GM/50 ML SYRINGE IVP PRN (11:00)
[2023-06-18 11:46] LABS: GLUCOMETER DEV NAME(LOC) 6N.2B; GLUCOSE,POINT OF CARE 79 MG/DL (70-110)
[2023-06-18] MEDS: OxyCODONE HCL 10 MG IR TABLET PO PRN ×2 (11:57→20:35)
[2023-06-18] MEDS: MULTIVITAMINS WITH MINERALS, THERAPEUTIC TABLET PO SCH (11:57)
[2023-06-18 19:40] VITALS: BP 117/83; PULSE 99; RESP 18; TEMP 97.6
[2023-06-19] MEDS: SODIUM CHLORIDE 1 GM TABLET PO SCH ×4 (00:12→23:25)
[2023-06-19] MEDS: HEPARIN SODIUM,PORCINE 5,000 UNITS/ML VIAL SQ SCH ×4 (00:12→23:25)
[2023-06-19] MEDS: TraMADol HCL 50 MG TABLET PO PRN (00:20)
[2023-06-19 00:51] LABS: GLUCOMETER DEV NAME(LOC) 6N.2B; GLUCOSE,POINT OF CARE 128 MG/DL (70-110)
[2023-06-19] MEDS: LEVOTHYROXINE SODIUM 88 MCG TABLET PO SCH (05:21)
[2023-06-19 05:24] VITALS: BP 113/81; PULSE 90; RESP 18; TEMP 98.3
[2023-06-19 06:11] LABS: GLUCOMETER DEV NAME(LOC) 4E.2; GLUCOSE,POINT OF CARE 95 MG/DL (70-110)
[2023-06-19 08:06] VITALS: BP 122/88; PULSE 88; RESP 18; TEMP 98.2
[2023-06-19] MEDS: METOPROLOL SUCCINATE 25 MG ER TABLET PO SCH (09:00)
[2023-06-19] MEDS: LevETIRAcetam 250 MG TABLET PO SCH ×2 (09:16→20:50)
[2023-06-19] MEDS: DULoxetine HCL 20 MG CAPSULE PO SCH (09:16)
[2023-06-19] MEDS: FERROUS SULFATE 325 MG EC TABLET PO SCH (09:16)
[2023-06-19] MEDS: PANTOPRAZOLE SODIUM 40 MG DR TABLET PO SCH (09:16)
[2023-06-19] MEDS: ETHYL ALCOHOL 62% ANTISEPTIC NASAL SANITIZER 0.6 ML AMPUL NASAL SCH ×2 (09:17→20:50)
[2023-06-19] MEDS: MULTIVITAMINS WITH MINERALS, THERAPEUTIC TABLET PO SCH (09:17)
[2023-06-19] MEDS: ATORVASTATIN CALCIUM 20 MG TABLET PO SCH (09:18)
[2023-06-19] MEDS: MetFORMIN HCL 500 MG TABLET PO SCH ×2 (09:18→17:43)
[2023-06-19] MEDS: OxyCODONE HCL 10 MG IR TABLET PO PRN ×2 (09:20→20:50)
[2023-06-19 12:06] LABS: GLUCOMETER DEV NAME(LOC) 6S.2; GLUCOSE,POINT OF CARE 125 MG/DL (70-110)
[2023-06-19 15:56] VITALS: BP 110/76; PULSE 89; RESP 18; TEMP 97.8
[2023-06-19 17:47] LABS: GLUCOMETER DEV NAME(LOC) 6N.2B; GLUCOSE,POINT OF CARE 110 MG/DL (70-110)
[2023-06-19 20:23] VITALS: BP 103/72; PULSE 87; RESP 18; TEMP 97.9
[2023-06-19] MEDS: INSULIN LISPRO 100 UNITS/ML SQ PRN (20:57)
[2023-06-19 22:37] LABS: GLUCOMETER DEV NAME(LOC) 6S.2; GLUCOSE,POINT OF CARE 164 MG/DL (70-110)
[2023-06-20 02:41] VITALS: BP 109/66; PULSE 104; RESP 18; TEMP 98.2
[2023-06-20] MEDS: OxyCODONE HCL 10 MG IR TABLET PO PRN ×2 (03:55→17:42)
[2023-06-20] MEDS: LEVOTHYROXINE SODIUM 88 MCG TABLET PO SCH (06:01)
[2023-06-20 07:50] LABS: GLUCOMETER DEV NAME(LOC) 6N.2B; GLUCOSE,POINT OF CARE 101 MG/DL (70-110)
[2023-06-20] MEDS: SODIUM CHLORIDE 1 GM TABLET PO SCH ×3 (08:00→17:35)
[2023-06-20] MEDS: MetFORMIN HCL 500 MG TABLET PO SCH ×2 (08:00→17:33)
[2023-06-20] MEDS: FERROUS SULFATE 325 MG EC TABLET PO SCH (08:00)
[2023-06-20 08:19] VITALS: BP 98/72; PULSE 104; RESP 18; TEMP 98.1
[2023-06-20] MEDS: ETHYL ALCOHOL 62% ANTISEPTIC NASAL SANITIZER 0.6 ML AMPUL NASAL SCH ×2 (08:34→20:42)
[2023-06-20] MEDS: HEPARIN SODIUM,PORCINE 5,000 UNITS/ML VIAL SQ SCH ×3 (08:37→17:36)
[2023-06-20] MEDS: DULoxetine HCL 20 MG CAPSULE PO SCH (08:47)
[2023-06-20] MEDS: ATORVASTATIN CALCIUM 20 MG TABLET PO SCH (08:48)
[2023-06-20] MEDS: METOPROLOL SUCCINATE 25 MG ER TABLET PO SCH (08:48)
[2023-06-20] MEDS: PANTOPRAZOLE SODIUM 40 MG DR TABLET PO SCH (08:48)
[2023-06-20] MEDS: MULTIVITAMINS WITH MINERALS, THERAPEUTIC TABLET PO SCH (08:48)
[2023-06-20] MEDS: LevETIRAcetam 250 MG TABLET PO SCH ×3 (08:48→20:50)
[2023-06-20 12:11] LABS: GLUCOMETER DEV NAME(LOC) 4E.2; GLUCOSE,POINT OF CARE 103 MG/DL (70-110)
[2023-06-20 16:13] VITALS: BP 128/74; PULSE 98; RESP 18; TEMP 98
[2023-06-20 20:12] VITALS: BP 111/74; PULSE 94; RESP 18; TEMP 98
[2023-06-21] MEDS: SODIUM CHLORIDE 1 GM TABLET PO SCH ×4 (00:34→23:21)
[2023-06-21] MEDS: OxyCODONE HCL 10 MG IR TABLET PO PRN ×2 (00:34→20:49)
[2023-06-21] MEDS: HEPARIN SODIUM,PORCINE 5,000 UNITS/ML VIAL SQ SCH ×4 (00:34→23:21)
[2023-06-21 02:06] LABS: GLUCOMETER DEV NAME(LOC) 4E.2; GLUCOSE,POINT OF CARE 101 MG/DL (70-110)
[2023-06-21 04:15] VITALS: BP 121/80; PULSE 92; RESP 18; TEMP 98.3
[2023-06-21] MEDS: LEVOTHYROXINE SODIUM 88 MCG TABLET PO SCH (06:05)
[2023-06-21 07:21] LABS: GLUCOMETER DEV NAME(LOC) 6N.2B; GLUCOSE,POINT OF CARE 101 MG/DL (70-110)
[2023-06-21 07:21] LABS: GLUCOMETER DEV NAME(LOC) 6N.2B; GLUCOSE,POINT OF CARE 121 MG/DL (70-110)
[2023-06-21] MEDS: MetFORMIN HCL 500 MG TABLET PO SCH ×2 (08:00→18:04)
[2023-06-21] MEDS: FERROUS SULFATE 325 MG EC TABLET PO SCH (08:00)
[2023-06-21 08:55] VITALS: BP 114/77; PULSE 94; RESP 18; TEMP 98.2
[2023-06-21] MEDS: ETHYL ALCOHOL 62% ANTISEPTIC NASAL SANITIZER 0.6 ML AMPUL NASAL SCH ×2 (09:00→20:42)
[2023-06-21] MEDS: LevETIRAcetam 250 MG TABLET PO SCH ×2 (10:00→20:42)
[2023-06-21] MEDS: METOPROLOL SUCCINATE 25 MG ER TABLET PO SCH (10:01)
[2023-06-21] MEDS: ATORVASTATIN CALCIUM 20 MG TABLET PO SCH (10:01)
[2023-06-21] MEDS: MULTIVITAMINS WITH MINERALS, THERAPEUTIC TABLET PO SCH (10:01)
[2023-06-21] MEDS: DULoxetine HCL 20 MG CAPSULE PO SCH (10:01)
[2023-06-21] MEDS: PANTOPRAZOLE SODIUM 40 MG DR TABLET PO SCH (10:02)
[2023-06-21 12:27] LABS: BASOPHILS % (AUTO) 0.9 % (0.0-2.0); EOSINOPHILS % (AUTO) 3.1 % (1.0-6.0); HEMATOCRIT 35.6 % (41-53); HEMOGLOBIN 11.3 g/dL (13.5-17.5); LYMPHOCYTES # (AUTO) 2.5 K/uL (1.0-4.8); LYMPHOCYTES % (AUTO) 30.2 % (22.0-44.0); MEAN CORPUSCULAR HEMOGLOBIN 22.8 pg (26.0-34.0); MEAN CORPUSCULAR HGB CONC 31.8 G/dL (31.0-37.0); MEAN CORPUSCULAR VOLUME 72 fL (80-100); MONOCYTES # (AUTO) 0.7 K/uL (0.1-1.0); MONOCYTES % (AUTO) 8.8 % (2.0-9.0); NEUTROPHILS # (AUTO) 4.7 K/uL (1.8-7.7); PLATELET COUNT (AUTO) 332 K/uL (150-450); RED BLOOD CELL COUNT(AUTO) 4.94 MIL/uL (4.50-5.90); RED CELL DISTRIBUTION WIDTH 13.9 % (11.5-14.5); WHITE BLOOD COUNT (AUTO) 8.2 K/uL (4.5-11.0)
[2023-06-21 12:41] LABS: ANION GAP 7 mmol/L (8-16); CALCIUM, TOTAL 9.4 mg/dL (8.8-10.5); CARBON DIOXIDE 31 mmol/L (22-29); CHLORIDE 96 mmol/L (98-107); GLOMERULAR FILTR. RATE CALC > 60 mL/min (>60); GLUCOSE,RANDOM 107 mg/dL (70-110); POTASSIUM 3.8 mmol/L (3.5-5.1); SODIUM SERUM 134 mmol/L (136-145); UREA NITROGEN, BLOOD 15 mg/dL (7-18)
[2023-06-21 13:21] LABS: GLUCOMETER DEV NAME(LOC) 6S.2; GLUCOSE,POINT OF CARE 98 MG/DL (70-110)
[2023-06-21 16:13] VITALS: BP 101/74; PULSE 89; RESP 19; TEMP 98.4
[2023-06-21 18:17] LABS: GLUCOMETER DEV NAME(LOC) 6N.2B; GLUCOSE,POINT OF CARE 130 MG/DL (70-110)
[2023-06-21 19:33] VITALS: BP 100/64; PULSE 87; RESP 20; TEMP 98.2
[2023-06-21 23:11] LABS: GLUCOMETER DEV NAME(LOC) 6S.2; GLUCOSE,POINT OF CARE 109 MG/DL (70-110)
[2023-06-22 03:29] VITALS: BP 99/61; PULSE 90; RESP 18; TEMP 98.2
[2023-06-22] MEDS: LEVOTHYROXINE SODIUM 88 MCG TABLET PO SCH (06:10)
[2023-06-22 08:11] LABS: GLUCOMETER DEV NAME(LOC) 6N.2B; GLUCOSE,POINT OF CARE 118 MG/DL (70-110)
[2023-06-22 09:01] VITALS: BP 97/68; PULSE 87; RESP 19; TEMP 98.2
[2023-06-22] MEDS: LevETIRAcetam 250 MG TABLET PO SCH ×2 (09:02→20:06)
[2023-06-22] MEDS: ATORVASTATIN CALCIUM 20 MG TABLET PO SCH (09:03)
[2023-06-22] MEDS: PANTOPRAZOLE SODIUM 40 MG DR TABLET PO SCH (09:04)
[2023-06-22] MEDS: SODIUM CHLORIDE 1 GM TABLET PO SCH ×2 (09:04→18:08)
[2023-06-22] MEDS: MULTIVITAMINS WITH MINERALS, THERAPEUTIC TABLET PO SCH (09:05)
[2023-06-22] MEDS: MetFORMIN HCL 500 MG TABLET PO SCH ×2 (09:05→18:08)
[2023-06-22] MEDS: FERROUS SULFATE 325 MG EC TABLET PO SCH (09:05)
[2023-06-22] MEDS: METOPROLOL SUCCINATE 25 MG ER TABLET PO SCH (09:06)
[2023-06-22] MEDS: HEPARIN SODIUM,PORCINE 5,000 UNITS/ML VIAL SQ SCH ×2 (09:06→18:08)
[2023-06-22] MEDS: ETHYL ALCOHOL 62% ANTISEPTIC NASAL SANITIZER 0.6 ML AMPUL NASAL SCH ×2 (09:06→20:06)
[2023-06-22] MEDS: DULoxetine HCL 20 MG CAPSULE PO SCH (09:11)
[2023-06-22 12:26] LABS: GLUCOMETER DEV NAME(LOC) 6S.2; GLUCOSE,POINT OF CARE 107 MG/DL (70-110)
[2023-06-22 18:06] LABS: GLUCOMETER DEV NAME(LOC) 6N.2B; GLUCOSE,POINT OF CARE 111 MG/DL (70-110)
[2023-06-22 19:55] VITALS: BP 96/61; PULSE 79; RESP 18; TEMP 98.6
[2023-06-23] MEDS: SODIUM CHLORIDE 1 GM TABLET PO SCH ×4 (00:10→23:21)
[2023-06-23] MEDS: HEPARIN SODIUM,PORCINE 5,000 UNITS/ML VIAL SQ SCH ×4 (00:10→23:21)
[2023-06-23] MEDS: OxyCODONE HCL 10 MG IR TABLET PO PRN ×2 (00:17→18:27)
[2023-06-23 01:35] LABS: GLUCOMETER DEV NAME(LOC) 4E.2; GLUCOSE,POINT OF CARE 82 MG/DL (70-110)
[2023-06-23 03:46] VITALS: BP 97/61; PULSE 74; RESP 18; TEMP 98.3
[2023-06-23] MEDS: LEVOTHYROXINE SODIUM 88 MCG TABLET PO SCH (05:58)
[2023-06-23 06:31] LABS: GLUCOMETER DEV NAME(LOC) 6S.2; GLUCOSE,POINT OF CARE 106 MG/DL (70-110)
[2023-06-23] MEDS: MetFORMIN HCL 500 MG TABLET PO SCH ×2 (08:00→18:05)
[2023-06-23] MEDS: FERROUS SULFATE 325 MG EC TABLET PO SCH (08:00)
[2023-06-23] MEDS: ATORVASTATIN CALCIUM 20 MG TABLET PO SCH (09:00)
[2023-06-23] MEDS: DULoxetine HCL 20 MG CAPSULE PO SCH (09:00)
[2023-06-23] MEDS: ETHYL ALCOHOL 62% ANTISEPTIC NASAL SANITIZER 0.6 ML AMPUL NASAL SCH ×2 (09:00→21:55)
[2023-06-23] MEDS: LevETIRAcetam 250 MG TABLET PO SCH ×2 (09:00→21:56)
[2023-06-23] MEDS: MULTIVITAMINS WITH MINERALS, THERAPEUTIC TABLET PO SCH (09:00)
[2023-06-23] MEDS: PANTOPRAZOLE SODIUM 40 MG DR TABLET PO SCH (09:00)
[2023-06-23 10:10] VITALS: BP 107/74; PULSE 97; RESP 20; TEMP 98.3
[2023-06-23 17:35] VITALS: BP 104/69; PULSE 93; RESP 20; TEMP 97.9
[2023-06-23 20:04] VITALS: BP 116/74; PULSE 95; RESP 18; TEMP 98.2
[2023-06-23 20:16] LABS: GLUCOMETER DEV NAME(LOC) 6N.2B; GLUCOSE,POINT OF CARE 130 MG/DL (70-110)
[2023-06-23] MEDS: TraMADol HCL 50 MG TABLET PO PRN (21:56)
[2023-06-24 01:01] LABS: GLUCOMETER DEV NAME(LOC) 4E.2; GLUCOSE,POINT OF CARE 91 MG/DL (70-110)
[2023-06-24] MEDS: OxyCODONE HCL 10 MG IR TABLET PO PRN ×2 (03:41→20:22)
[2023-06-24] MEDS: LEVOTHYROXINE SODIUM 88 MCG TABLET PO SCH (06:09)
[2023-06-24] MEDS: INSULIN LISPRO 100 UNITS/ML SQ PRN (06:11)
[2023-06-24 07:30] LABS: GLUCOMETER DEV NAME(LOC) 6S.2; GLUCOSE,POINT OF CARE 142 MG/DL (70-110)
[2023-06-24] MEDS: MetFORMIN HCL 500 MG TABLET PO SCH ×2 (08:00→18:00)
[2023-06-24] MEDS: SODIUM CHLORIDE 1 GM TABLET PO SCH ×3 (08:00→23:39)
[2023-06-24] MEDS: HEPARIN SODIUM,PORCINE 5,000 UNITS/ML VIAL SQ SCH ×3 (08:00→23:39)
[2023-06-24] MEDS: FERROUS SULFATE 325 MG EC TABLET PO SCH (08:00)
[2023-06-24] MEDS: ETHYL ALCOHOL 62% ANTISEPTIC NASAL SANITIZER 0.6 ML AMPUL NASAL SCH ×2 (09:00→20:16)
[2023-06-24] MEDS: LevETIRAcetam 250 MG TABLET PO SCH ×2 (09:00→20:16)
[2023-06-24] MEDS: PANTOPRAZOLE SODIUM 40 MG DR TABLET PO SCH (09:00)
[2023-06-24] MEDS: MULTIVITAMINS WITH MINERALS, THERAPEUTIC TABLET PO SCH (09:00)
[2023-06-24] MEDS: ATORVASTATIN CALCIUM 20 MG TABLET PO SCH (09:00)
[2023-06-24] MEDS: DULoxetine HCL 20 MG CAPSULE PO SCH (09:00)
[2023-06-24 10:55] VITALS: BP 104/75; PULSE 83; RESP 20; TEMP 98
[2023-06-24 17:51] VITALS: BP 103/73; PULSE 94; RESP 20; TEMP 97.7
[2023-06-24 20:26] VITALS: BP 103/70; PULSE 84; RESP 18; TEMP 98.1
[2023-06-24 21:51] LABS: GLUCOMETER DEV NAME(LOC) 6N.2B; GLUCOSE,POINT OF CARE 110 MG/DL (70-110)
[2023-06-25] MEDS: OxyCODONE HCL 10 MG IR TABLET PO PRN ×2 (02:38→18:44)
[2023-06-25 04:40] VITALS: BP 111/80; PULSE 82; RESP 20; TEMP 98.4
[2023-06-25] MEDS: LEVOTHYROXINE SODIUM 88 MCG TABLET PO SCH (05:52)
[2023-06-25 06:26] LABS: GLUCOMETER DEV NAME(LOC) 6S.2; GLUCOSE,POINT OF CARE 106 MG/DL (70-110)
[2023-06-25 08:15] VITALS: BP 108/77; PULSE 80; RESP 19; TEMP 98.1
[2023-06-25] MEDS: FERROUS SULFATE 325 MG EC TABLET PO SCH (08:49)
[2023-06-25] MEDS: SODIUM CHLORIDE 1 GM TABLET PO SCH ×2 (08:49→17:13)
[2023-06-25] MEDS: LevETIRAcetam 250 MG TABLET PO SCH ×2 (08:49→20:46)
[2023-06-25] MEDS: DULoxetine HCL 20 MG CAPSULE PO SCH (08:50)
[2023-06-25] MEDS: PANTOPRAZOLE SODIUM 40 MG DR TABLET PO SCH (08:50)
[2023-06-25] MEDS: ATORVASTATIN CALCIUM 20 MG TABLET PO SCH (08:50)
[2023-06-25] MEDS: MetFORMIN HCL 500 MG TABLET PO SCH ×2 (08:50→17:08)
[2023-06-25] MEDS: MULTIVITAMINS WITH MINERALS, THERAPEUTIC TABLET PO SCH (08:50)
[2023-06-25] MEDS: HEPARIN SODIUM,PORCINE 5,000 UNITS/ML VIAL SQ SCH ×2 (08:51→17:08)
[2023-06-25] MEDS: ETHYL ALCOHOL 62% ANTISEPTIC NASAL SANITIZER 0.6 ML AMPUL NASAL SCH ×2 (09:17→20:45)
[2023-06-25 14:11] LABS: GLUCOMETER DEV NAME(LOC) 6S.2; GLUCOSE,POINT OF CARE 117 MG/DL (70-110)
[2023-06-25 16:33] VITALS: BP 112/80; PULSE 85; RESP 19; TEMP 98.4
[2023-06-25 17:36] LABS: GLUCOMETER DEV NAME(LOC) 4E.2; GLUCOSE,POINT OF CARE 112 MG/DL (70-110)
[2023-06-25 20:00] VITALS: BP 100/63; PULSE 79; RESP 18; TEMP 98.4
[2023-06-26] MEDS: SODIUM CHLORIDE 1 GM TABLET PO SCH ×4 (00:31→23:55)
[2023-06-26] MEDS: HEPARIN SODIUM,PORCINE 5,000 UNITS/ML VIAL SQ SCH ×4 (00:31→23:55)
[2023-06-26] MEDS: OxyCODONE HCL 10 MG IR TABLET PO PRN ×2 (03:48→21:17)
[2023-06-26 04:28] VITALS: BP 102/70; PULSE 83; RESP 18; TEMP 98.6
[2023-06-26] MEDS: LEVOTHYROXINE SODIUM 88 MCG TABLET PO SCH (05:48)
[2023-06-26 06:06] LABS: GLUCOMETER DEV NAME(LOC) 4E.2; GLUCOSE,POINT OF CARE 104 MG/DL (70-110)
[2023-06-26 07:51] LABS: GLUCOMETER DEV NAME(LOC) 6N.2B; GLUCOSE,POINT OF CARE 97 MG/DL (70-110)
[2023-06-26] MEDS: ETHYL ALCOHOL 62% ANTISEPTIC NASAL SANITIZER 0.6 ML AMPUL NASAL SCH ×2 (08:35→21:08)
[2023-06-26] MEDS: MULTIVITAMINS WITH MINERALS, THERAPEUTIC TABLET PO SCH (08:35)
[2023-06-26] MEDS: LevETIRAcetam 250 MG TABLET PO SCH ×2 (08:35→21:11)
[2023-06-26] MEDS: FERROUS SULFATE 325 MG EC TABLET PO SCH (08:35)
[2023-06-26] MEDS: DULoxetine HCL 20 MG CAPSULE PO SCH (08:36)
[2023-06-26] MEDS: ATORVASTATIN CALCIUM 20 MG TABLET PO SCH (08:36)
[2023-06-26] MEDS: MetFORMIN HCL 500 MG TABLET PO SCH ×2 (08:36→18:13)
[2023-06-26] MEDS: PANTOPRAZOLE SODIUM 40 MG DR TABLET PO SCH (08:36)
[2023-06-26 08:42] VITALS: BP 116/77; PULSE 84; RESP 20; TEMP 98.3
[2023-06-26 10:36] LABS: BASOPHILS % (AUTO) 0.8 % (0.0-2.0); EOSINOPHILS % (AUTO) 3.6 % (1.0-6.0); HEMATOCRIT 31.6 % (41-53); HEMOGLOBIN 10.1 g/dL (13.5-17.5); LYMPHOCYTES # (AUTO) 3.2 K/uL (1.0-4.8); LYMPHOCYTES % (AUTO) 32.4 % (22.0-44.0); MEAN CORPUSCULAR HEMOGLOBIN 22.7 pg (26.0-34.0); MEAN CORPUSCULAR VOLUME 71 fL (80-100); MONOCYTES # (AUTO) 0.9 K/uL (0.1-1.0); MONOCYTES % (AUTO) 8.9 % (2.0-9.0); NEUTROPHILS # (AUTO) 5.4 K/uL (1.8-7.7); NEUTROPHILS % (AUTO) 54.3 % (40.0-70.0); PLATELET COUNT (AUTO) 387 K/uL (150-450); RED BLOOD CELL COUNT(AUTO) 4.45 MIL/uL (4.50-5.90); RED CELL DISTRIBUTION WIDTH 14.2 % (11.5-14.5); WHITE BLOOD COUNT (AUTO) 9.9 K/uL (4.5-11.0)
[2023-06-26 10:55] LABS: ANION GAP 10 mmol/L (8-16); CALCIUM, TOTAL 9.2 mg/dL (8.8-10.5); CARBON DIOXIDE 25 mmol/L (22-29); CHLORIDE 101 mmol/L (98-107); CREATININE 0.45 mg/dL (0.60-1.30); GLOMERULAR FILTR. RATE CALC > 60 mL/min (>60); GLUCOSE,RANDOM 127 mg/dL (70-110); POTASSIUM 3.8 mmol/L (3.5-5.1); SODIUM SERUM 136 mmol/L (136-145); UREA NITROGEN, BLOOD 13 mg/dL (7-18)
[2023-06-26 15:21] LABS: GLUCOMETER DEV NAME(LOC) 4E.2; GLUCOSE,POINT OF CARE 104 MG/DL (70-110)
[2023-06-26 16:24] VITALS: BP 110/60; PULSE 83; RESP 20; TEMP 98.1
[2023-06-26] MEDS: TraMADol HCL 50 MG TABLET PO PRN (18:28)
[2023-06-26 19:06] LABS: GLUCOMETER DEV NAME(LOC) 4E.2; GLUCOSE,POINT OF CARE 102 MG/DL (70-110)
[2023-06-26 19:56] VITALS: BP 102/69; PULSE 86; RESP 20; TEMP 98.8
[2023-06-27 03:34] VITALS: BP 98/64; PULSE 70; RESP 18; TEMP 98.3
[2023-06-27] MEDS: LEVOTHYROXINE SODIUM 88 MCG TABLET PO SCH (05:48)
[2023-06-27 06:41] LABS: GLUCOMETER DEV NAME(LOC) 6S.2; GLUCOSE,POINT OF CARE 113 MG/DL (70-110)
[2023-06-27 06:41] LABS: GLUCOMETER DEV NAME(LOC) 6S.2; GLUCOSE,POINT OF CARE 133 MG/DL (70-110)
[2023-06-27 08:04] VITALS: BP 104/55; PULSE 70; RESP 18; TEMP 98.1
[2023-06-27] MEDS: ETHYL ALCOHOL 62% ANTISEPTIC NASAL SANITIZER 0.6 ML AMPUL NASAL SCH ×2 (08:27→21:46)
[2023-06-27] MEDS: SODIUM CHLORIDE 1 GM TABLET PO SCH ×3 (08:27→23:54)
[2023-06-27] MEDS: DULoxetine HCL 20 MG CAPSULE PO SCH (08:27)
[2023-06-27] MEDS: PANTOPRAZOLE SODIUM 40 MG DR TABLET PO SCH (08:27)
[2023-06-27] MEDS: ATORVASTATIN CALCIUM 20 MG TABLET PO SCH (08:27)
[2023-06-27] MEDS: LevETIRAcetam 250 MG TABLET PO SCH ×2 (08:27→21:46)
[2023-06-27] MEDS: HEPARIN SODIUM,PORCINE 5,000 UNITS/ML VIAL SQ SCH ×3 (08:27→23:54)
[2023-06-27] MEDS: FERROUS SULFATE 325 MG EC TABLET PO SCH (08:28)
[2023-06-27] MEDS: MetFORMIN HCL 500 MG TABLET PO SCH ×2 (08:28→17:48)
[2023-06-27] MEDS: MULTIVITAMINS WITH MINERALS, THERAPEUTIC TABLET PO SCH (08:28)
[2023-06-27] MEDS: OxyCODONE HCL 10 MG IR TABLET PO PRN ×2 (09:48→21:52)
[2023-06-27] MEDS: INSULIN LISPRO 100 UNITS/ML SQ PRN (12:24)
[2023-06-27] MEDS: TraMADol HCL 50 MG TABLET PO PRN (13:10)
[2023-06-27 15:47] VITALS: BP 107/71; PULSE 87; RESP 18; TEMP 97.6
[2023-06-27 18:01] LABS: GLUCOMETER DEV NAME(LOC) 6S.2; GLUCOSE,POINT OF CARE 127 MG/DL (70-110)
[2023-06-27 18:01] LABS: GLUCOMETER DEV NAME(LOC) 6S.2; GLUCOSE,POINT OF CARE 181 MG/DL (70-110)
[2023-06-27 19:20] VITALS: BP 100/64; PULSE 73; RESP 18; TEMP 98.4
[2023-06-28 01:36] LABS: GLUCOMETER DEV NAME(LOC) 6S.2; GLUCOSE,POINT OF CARE 118 MG/DL (70-110)
[2023-06-28 04:20] VITALS: BP 112/75; PULSE 72; RESP 18; TEMP 97.7
[2023-06-28] MEDS: LEVOTHYROXINE SODIUM 88 MCG TABLET PO SCH (05:52)
[2023-06-28 07:26] LABS: GLUCOMETER DEV NAME(LOC) 4E.2; GLUCOSE,POINT OF CARE 103 MG/DL (70-110)
[2023-06-28] MEDS: FERROUS SULFATE 325 MG EC TABLET PO SCH (08:00)
[2023-06-28] MEDS: HEPARIN SODIUM,PORCINE 5,000 UNITS/ML VIAL SQ SCH ×2 (08:00→16:10)
[2023-06-28] MEDS: SODIUM CHLORIDE 1 GM TABLET PO SCH ×2 (08:00→16:10)
[2023-06-28] MEDS: MetFORMIN HCL 500 MG TABLET PO SCH ×2 (08:00→18:48)
[2023-06-28 08:02] VITALS: BP 106/72; PULSE 77; RESP 19; TEMP 97.8
[2023-06-28] MEDS: MULTIVITAMINS WITH MINERALS, THERAPEUTIC TABLET PO SCH (09:00)
[2023-06-28] MEDS: LevETIRAcetam 250 MG TABLET PO SCH ×2 (09:00→20:43)
[2023-06-28] MEDS: PANTOPRAZOLE SODIUM 40 MG DR TABLET PO SCH (09:00)
[2023-06-28] MEDS: DULoxetine HCL 20 MG CAPSULE PO SCH (09:00)
[2023-06-28] MEDS: ATORVASTATIN CALCIUM 20 MG TABLET PO SCH (09:00)
[2023-06-28] MEDS: ETHYL ALCOHOL 62% ANTISEPTIC NASAL SANITIZER 0.6 ML AMPUL NASAL SCH ×2 (09:00→20:28)
[2023-06-28 15:53] VITALS: BP 110/78; PULSE 70; RESP 19; TEMP 98.2
[2023-06-28 20:03] VITALS: BP 100/66; PULSE 79; RESP 18; TEMP 98.1
[2023-06-28] MEDS: OxyCODONE HCL 10 MG IR TABLET PO PRN (20:29)
[2023-06-28] MEDS: MELATONIN 3 MG TABLET PO PRN (20:33)
[2023-06-28] MEDS: TraMADol HCL 50 MG TABLET PO PRN (20:33)
[2023-06-28 23:41] LABS: GLUCOMETER DEV NAME(LOC) 6N.2B; GLUCOSE,POINT OF CARE 102 MG/DL (70-110)
[2023-06-29] MEDS: HEPARIN SODIUM,PORCINE 5,000 UNITS/ML VIAL SQ SCH ×3 (00:35→16:29)
[2023-06-29] MEDS: SODIUM CHLORIDE 1 GM TABLET PO SCH ×3 (00:36→16:29)
[2023-06-29 04:19] VITALS: BP 96/51; PULSE 70; RESP 18; TEMP 97.7
[2023-06-29] MEDS: LEVOTHYROXINE SODIUM 88 MCG TABLET PO SCH (06:30)
[2023-06-29] MEDS: LevETIRAcetam 250 MG TABLET PO SCH ×2 (08:25→20:31)
[2023-06-29] MEDS: MetFORMIN HCL 500 MG TABLET PO SCH ×2 (08:25→18:20)
[2023-06-29] MEDS: DULoxetine HCL 20 MG CAPSULE PO SCH (08:25)
[2023-06-29] MEDS: MULTIVITAMINS WITH MINERALS, THERAPEUTIC TABLET PO SCH (08:25)
[2023-06-29] MEDS: FERROUS SULFATE 325 MG EC TABLET PO SCH (08:25)
[2023-06-29] MEDS: PANTOPRAZOLE SODIUM 40 MG DR TABLET PO SCH (08:25)
[2023-06-29] MEDS: ATORVASTATIN CALCIUM 20 MG TABLET PO SCH (08:25)
[2023-06-29] MEDS: ETHYL ALCOHOL 62% ANTISEPTIC NASAL SANITIZER 0.6 ML AMPUL NASAL SCH ×2 (08:25→20:30)
[2023-06-29] MEDS: OxyCODONE HCL 10 MG IR TABLET PO PRN ×3 (08:40→20:33)
[2023-06-29 16:16] VITALS: BP 118/75; PULSE 82; RESP 18; TEMP 97.6
[2023-06-29 19:38] VITALS: BP 108/77; PULSE 85; RESP 18; TEMP 98.3
[2023-06-29] MEDS: MELATONIN 3 MG TABLET PO PRN (20:31)
[2023-06-29] MEDS: TraMADol HCL 50 MG TABLET PO PRN (20:31)
[2023-06-30] MEDS: SODIUM CHLORIDE 1 GM TABLET PO SCH ×4 (00:06→23:10)
[2023-06-30] MEDS: HEPARIN SODIUM,PORCINE 5,000 UNITS/ML VIAL SQ SCH ×4 (00:07→23:10)
[2023-06-30] MEDS ORDERED: SODIUM CL IRRIG SOLN BOTTLE 250 ML IRRIG ONE (01:39)
[2023-06-30 02:35] VITALS: BP 109/75; PULSE 75; RESP 18; TEMP 98.6
[2023-06-30 06:06] LABS: GLUCOMETER DEV NAME(LOC) 6S.2; GLUCOSE,POINT OF CARE 89 MG/DL (70-110)
[2023-06-30] MEDS: LEVOTHYROXINE SODIUM 88 MCG TABLET PO SCH (06:33)
[2023-06-30 07:26] LABS: GLUCOMETER DEV NAME(LOC) 6N.2B; GLUCOSE,POINT OF CARE 134 MG/DL (70-110)
[2023-06-30] MEDS: ETHYL ALCOHOL 62% ANTISEPTIC NASAL SANITIZER 0.6 ML AMPUL NASAL SCH ×2 (08:19→20:38)
[2023-06-30] MEDS: LevETIRAcetam 250 MG TABLET PO SCH ×2 (08:19→20:38)
[2023-06-30] MEDS: MULTIVITAMINS WITH MINERALS, THERAPEUTIC TABLET PO SCH (08:19)
[2023-06-30] MEDS: FERROUS SULFATE 325 MG EC TABLET PO SCH (08:19)
[2023-06-30] MEDS: ATORVASTATIN CALCIUM 20 MG TABLET PO SCH (08:19)
[2023-06-30] MEDS: DULoxetine HCL 20 MG CAPSULE PO SCH (08:19)
[2023-06-30] MEDS: MetFORMIN HCL 500 MG TABLET PO SCH ×2 (08:19→18:47)
[2023-06-30] MEDS: PANTOPRAZOLE SODIUM 40 MG DR TABLET PO SCH (08:19)
[2023-06-30 08:50] VITALS: BP 112/72; PULSE 79; RESP 18; TEMP 97.9
[2023-06-30 12:31] LABS: GLUCOMETER DEV NAME(LOC) 6S.2; GLUCOSE,POINT OF CARE 123 MG/DL (70-110)
[2023-06-30] MEDS: OxyCODONE HCL 10 MG IR TABLET PO PRN ×2 (13:00→23:09)
[2023-06-30 15:59] VITALS: BP 108/74; PULSE 97; RESP 16; TEMP 98.3
[2023-06-30 17:45] LABS: COVID AG,FIA SOURCE NASAL SWAB
[2023-06-30 18:34] LABS: SARS-COV2 (COVID) ANTIGEN,FIA Negative (Negative)
[2023-06-30 19:50] VITALS: BP 105/71; PULSE 80; RESP 18; TEMP 98
[2023-06-30] MEDS: INSULIN LISPRO 100 UNITS/ML SQ PRN (20:38)
[2023-06-30 21:16] LABS: GLUCOMETER DEV NAME(LOC) 4E.2; GLUCOSE,POINT OF CARE 148 MG/DL (70-110)
[2023-06-30] MEDS: MELATONIN 3 MG TABLET PO PRN (23:09)
[2023-07-01 03:38] VITALS: BP 121/74; PULSE 81; RESP 18; TEMP 98.2
[2023-07-01] MEDS: LEVOTHYROXINE SODIUM 88 MCG TABLET PO SCH (05:51)
[2023-07-01] MEDS: OxyCODONE HCL 10 MG IR TABLET PO PRN ×2 (05:51→20:34)
[2023-07-01 06:11] LABS: GLUCOMETER DEV NAME(LOC) 6S.2; GLUCOSE,POINT OF CARE 117 MG/DL (70-110)
[2023-07-01 07:57] VITALS: BP 111/71; PULSE 78; RESP 18; TEMP 98.7
[2023-07-01] MEDS: MetFORMIN HCL 500 MG TABLET PO SCH ×2 (08:13→18:14)
[2023-07-01] MEDS: DULoxetine HCL 20 MG CAPSULE PO SCH (08:13)
[2023-07-01] MEDS: ATORVASTATIN CALCIUM 20 MG TABLET PO SCH (08:13)
[2023-07-01] MEDS: LevETIRAcetam 250 MG TABLET PO SCH ×2 (08:13→20:26)
[2023-07-01] MEDS: MULTIVITAMINS WITH MINERALS, THERAPEUTIC TABLET PO SCH (08:13)
[2023-07-01] MEDS: PANTOPRAZOLE SODIUM 40 MG DR TABLET PO SCH (08:13)
[2023-07-01] MEDS: FERROUS SULFATE 325 MG EC TABLET PO SCH (08:13)
[2023-07-01] MEDS: SODIUM CHLORIDE 1 GM TABLET PO SCH ×3 (08:13→23:52)
[2023-07-01] MEDS: HEPARIN SODIUM,PORCINE 5,000 UNITS/ML VIAL SQ SCH ×3 (08:14→23:52)
[2023-07-01] MEDS: ETHYL ALCOHOL 62% ANTISEPTIC NASAL SANITIZER 0.6 ML AMPUL NASAL SCH ×2 (08:21→20:26)
[2023-07-01 15:51] VITALS: BP 111/75; PULSE 98; RESP 18; TEMP 97.7
[2023-07-01 17:06] LABS: GLUCOMETER DEV NAME(LOC) 6N.2B; GLUCOSE,POINT OF CARE 113 MG/DL (70-110)
[2023-07-01 18:57] LABS: GLUCOMETER DEV NAME(LOC) 4E.2; GLUCOSE,POINT OF CARE 124 MG/DL (70-110)
[2023-07-01 19:50] VITALS: BP 101/57; PULSE 75; RESP 18; TEMP 98.4
[2023-07-02 04:24] VITALS: BP 106/71; PULSE 74; RESP 18; TEMP 98.5
[2023-07-02 05:16] LABS: GLUCOMETER DEV NAME(LOC) 4E.2; GLUCOSE,POINT OF CARE 107 MG/DL (70-110)
[2023-07-02] MEDS: LEVOTHYROXINE SODIUM 88 MCG TABLET PO SCH (05:36)
[2023-07-02] MEDS: SODIUM CHLORIDE 1 GM TABLET PO SCH ×2 (08:00→16:00)
[2023-07-02] MEDS: FERROUS SULFATE 325 MG EC TABLET PO SCH (08:00)
[2023-07-02] MEDS: MetFORMIN HCL 500 MG TABLET PO SCH ×2 (08:00→17:14)
[2023-07-02] MEDS: HEPARIN SODIUM,PORCINE 5,000 UNITS/ML VIAL SQ SCH ×2 (08:00→16:00)
[2023-07-02 08:05] VITALS: BP 110/66; PULSE 77; RESP 19; TEMP 98.4
[2023-07-02] MEDS: ETHYL ALCOHOL 62% ANTISEPTIC NASAL SANITIZER 0.6 ML AMPUL NASAL SCH ×2 (09:00→20:24)
[2023-07-02] MEDS: PANTOPRAZOLE SODIUM 40 MG DR TABLET PO SCH (09:00)
[2023-07-02] MEDS: LevETIRAcetam 250 MG TABLET PO SCH ×2 (09:00→20:24)
[2023-07-02] MEDS: ATORVASTATIN CALCIUM 20 MG TABLET PO SCH (09:00)
[2023-07-02] MEDS: MULTIVITAMINS WITH MINERALS, THERAPEUTIC TABLET PO SCH (09:00)
[2023-07-02] MEDS: DULoxetine HCL 20 MG CAPSULE PO SCH (09:00)
[2023-07-02 11:36] LABS: GLUCOMETER DEV NAME(LOC) 4E.2; GLUCOSE,POINT OF CARE 109 MG/DL (70-110)
[2023-07-02 15:51] VITALS: BP 108/68; PULSE 72; RESP 18; TEMP 98.2
[2023-07-02 16:27] LABS: ANION GAP 8 mmol/L (8-16); CALCIUM, TOTAL 9.3 mg/dL (8.8-10.5); CARBON DIOXIDE 29 mmol/L (22-29); CHLORIDE 102 mmol/L (98-107); CREATININE 0.37 mg/dL (0.60-1.30); GLOMERULAR FILTR. RATE CALC > 60 mL/min (>60); GLUCOSE,RANDOM 97 mg/dL (70-110); SODIUM SERUM 139 mmol/L (136-145); UREA NITROGEN, BLOOD 17 mg/dL (7-18)
[2023-07-02 17:27] LABS: BASOPHILS % (AUTO) 0.8 % (0.0-2.0); EOSINOPHILS % (AUTO) 3.2 % (1.0-6.0); HEMATOCRIT 31.8 % (41-53); HEMOGLOBIN 10.3 g/dL (13.5-17.5); LYMPHOCYTES # (AUTO) 2.4 K/uL (1.0-4.8); MEAN CORPUSCULAR HEMOGLOBIN 23.2 pg (26.0-34.0); MEAN CORPUSCULAR HGB CONC 32.5 G/dL (31.0-37.0); MEAN CORPUSCULAR VOLUME 71 fL (80-100); MONOCYTES # (AUTO) 0.8 K/uL (0.1-1.0); MONOCYTES % (AUTO) 9.8 % (2.0-9.0); NEUTROPHILS # (AUTO) 4.7 K/uL (1.8-7.7); NEUTROPHILS % (AUTO) 57.2 % (40.0-70.0); PLATELET COUNT (AUTO) 353 K/uL (150-450); RED BLOOD CELL COUNT(AUTO) 4.46 MIL/uL (4.50-5.90); RED CELL DISTRIBUTION WIDTH 14.8 % (11.5-14.5); WHITE BLOOD COUNT (AUTO) 8.1 K/uL (4.5-11.0)
[2023-07-02 17:56] LABS: RBC MORPHOLOGY COMMENT ABNORMAL RBC MORPH
[2023-07-02 18:21] LABS: GLUCOMETER DEV NAME(LOC) 6S.2; GLUCOSE,POINT OF CARE 100 MG/DL (70-110)
[2023-07-02 18:26] LABS: GLUCOMETER DEV NAME(LOC) 6N.2B; GLUCOSE,POINT OF CARE 117 MG/DL (70-110)
[2023-07-02 20:13] VITALS: BP 102/68; PULSE 73; RESP 18; TEMP 98
[2023-07-02] MEDS: MELATONIN 3 MG TABLET PO PRN (20:24)
[2023-07-02] MEDS: OxyCODONE HCL 10 MG IR TABLET PO PRN (20:24)
[2023-07-02 21:11] LABS: GLUCOMETER DEV NAME(LOC) 6N.2B; GLUCOSE,POINT OF CARE 111 MG/DL (70-110)
[2023-07-03] MEDS: HEPARIN SODIUM,PORCINE 5,000 UNITS/ML VIAL SQ SCH ×4 (00:07→23:55)
[2023-07-03] MEDS: SODIUM CHLORIDE 1 GM TABLET PO SCH ×4 (00:07→23:55)
[2023-07-03 05:11] VITALS: BP 115/73; PULSE 71; RESP 18; TEMP 97.9
[2023-07-03] MEDS: LEVOTHYROXINE SODIUM 88 MCG TABLET PO SCH (05:46)
[2023-07-03] MEDS: OxyCODONE HCL 10 MG IR TABLET PO PRN ×3 (05:46→23:56)
[2023-07-03 07:46] LABS: GLUCOMETER DEV NAME(LOC) 6N.2B; GLUCOSE,POINT OF CARE 107 MG/DL (70-110)
[2023-07-03 08:14] VITALS: BP 122/76; PULSE 74; RESP 18; TEMP 98.2
[2023-07-03] MEDS: DULoxetine HCL 20 MG CAPSULE PO SCH (08:27)
[2023-07-03] MEDS: FERROUS SULFATE 325 MG EC TABLET PO SCH (08:27)
[2023-07-03] MEDS: ATORVASTATIN CALCIUM 20 MG TABLET PO SCH (08:27)
[2023-07-03] MEDS: MULTIVITAMINS WITH MINERALS, THERAPEUTIC TABLET PO SCH (08:27)
[2023-07-03] MEDS: PANTOPRAZOLE SODIUM 40 MG DR TABLET PO SCH (08:27)
[2023-07-03] MEDS: LevETIRAcetam 250 MG TABLET PO SCH ×2 (08:27→21:09)
[2023-07-03] MEDS: MetFORMIN HCL 500 MG TABLET PO SCH ×2 (08:31→17:51)
[2023-07-03] MEDS: ETHYL ALCOHOL 62% ANTISEPTIC NASAL SANITIZER 0.6 ML AMPUL NASAL SCH ×2 (08:31→21:09)
[2023-07-03 13:51] LABS: GLUCOMETER DEV NAME(LOC) 6N.2B; GLUCOSE,POINT OF CARE 91 MG/DL (70-110)
[2023-07-03 15:58] VITALS: BP 99/66; PULSE 94; RESP 20; TEMP 97.6
[2023-07-03 19:11] LABS: GLUCOMETER DEV NAME(LOC) 6N.2B; GLUCOSE,POINT OF CARE 106 MG/DL (70-110)
[2023-07-03 19:35] VITALS: BP 108/70; PULSE 69; RESP 18; TEMP 98.1
[2023-07-04 00:42] LABS: GLUCOMETER DEV NAME(LOC) 4E.2; GLUCOSE,POINT OF CARE 109 MG/DL (70-110)
[2023-07-04 05:10] VITALS: BP 107/73; PULSE 65; RESP 18; TEMP 97.9
[2023-07-04] MEDS: LEVOTHYROXINE SODIUM 88 MCG TABLET PO SCH (06:00)
[2023-07-04] MEDS: OxyCODONE HCL 10 MG IR TABLET PO PRN ×3 (06:07→20:52)
[2023-07-04 07:41] LABS: GLUCOMETER DEV NAME(LOC) 6N.2B; GLUCOSE,POINT OF CARE 96 MG/DL (70-110)
[2023-07-04 08:35] VITALS: BP 107/69; PULSE 71; RESP 19; TEMP 98.1
[2023-07-04] MEDS: DULoxetine HCL 20 MG CAPSULE PO SCH (08:41)
[2023-07-04] MEDS: LevETIRAcetam 250 MG TABLET PO SCH ×2 (08:41→20:51)
[2023-07-04] MEDS: MetFORMIN HCL 500 MG TABLET PO SCH ×2 (08:41→16:56)
[2023-07-04] MEDS: MULTIVITAMINS WITH MINERALS, THERAPEUTIC TABLET PO SCH (08:41)
[2023-07-04] MEDS: SODIUM CHLORIDE 1 GM TABLET PO SCH ×3 (08:41→23:33)
[2023-07-04] MEDS: FERROUS SULFATE 325 MG EC TABLET PO SCH (08:41)
[2023-07-04] MEDS: PANTOPRAZOLE SODIUM 40 MG DR TABLET PO SCH (08:41)
[2023-07-04] MEDS: HEPARIN SODIUM,PORCINE 5,000 UNITS/ML VIAL SQ SCH ×3 (08:42→23:33)
[2023-07-04] MEDS: ATORVASTATIN CALCIUM 20 MG TABLET PO SCH (08:45)
[2023-07-04 13:21] LABS: GLUCOMETER DEV NAME(LOC) 4E.2; GLUCOSE,POINT OF CARE 115 MG/DL (70-110)
[2023-07-04 16:34] VITALS: BP 108/68; PULSE 74; RESP 19; TEMP 98.2
[2023-07-04 19:42] VITALS: BP 123/67; PULSE 74; RESP 18; TEMP 97.8
[2023-07-04 20:16] LABS: GLUCOMETER DEV NAME(LOC) 4E.2; GLUCOSE,POINT OF CARE 106 MG/DL (70-110)
[2023-07-05 01:56] LABS: GLUCOMETER DEV NAME(LOC) 6S.2; GLUCOSE,POINT OF CARE 97 MG/DL (70-110)
[2023-07-05 04:22] VITALS: BP 114/65; PULSE 70; RESP 18; TEMP 98.3
[2023-07-05] MEDS: LEVOTHYROXINE SODIUM 88 MCG TABLET PO SCH (05:53)
[2023-07-05 07:46] LABS: GLUCOMETER DEV NAME(LOC) 4E.2; GLUCOSE,POINT OF CARE 100 MG/DL (70-110)
[2023-07-05 07:47] VITALS: BP 111/70; PULSE 70; RESP 18; TEMP 98
[2023-07-05] MEDS: DULoxetine HCL 20 MG CAPSULE PO SCH (08:19)
[2023-07-05] MEDS: MULTIVITAMINS WITH MINERALS, THERAPEUTIC TABLET PO SCH (08:19)
[2023-07-05] MEDS: SODIUM CHLORIDE 1 GM TABLET PO SCH ×3 (08:19→23:36)
[2023-07-05] MEDS: ATORVASTATIN CALCIUM 20 MG TABLET PO SCH (08:19)
[2023-07-05] MEDS: PANTOPRAZOLE SODIUM 40 MG DR TABLET PO SCH (08:19)
[2023-07-05] MEDS: FERROUS SULFATE 325 MG EC TABLET PO SCH (08:19)
[2023-07-05] MEDS: HEPARIN SODIUM,PORCINE 5,000 UNITS/ML VIAL SQ SCH ×3 (08:20→23:38)
[2023-07-05] MEDS: MetFORMIN HCL 500 MG TABLET PO SCH ×2 (08:20→18:05)
[2023-07-05] MEDS: LevETIRAcetam 250 MG TABLET PO SCH ×2 (08:20→21:18)
[2023-07-05] MEDS: OxyCODONE HCL 10 MG IR TABLET PO PRN ×3 (10:49→23:38)
[2023-07-05 13:02] LABS: GLUCOMETER DEV NAME(LOC) 6S.2; GLUCOSE,POINT OF CARE 100 MG/DL (70-110)
[2023-07-05 15:26] VITALS: BP 110/71; PULSE 73; RESP 18; TEMP 97.9
[2023-07-05 19:35] VITALS: BP 106/79; PULSE 74; RESP 18; TEMP 97.7
[2023-07-05 20:46] LABS: GLUCOMETER DEV NAME(LOC) 6N.2B; GLUCOSE,POINT OF CARE 102 MG/DL (70-110)
[2023-07-06 00:41] LABS: GLUCOMETER DEV NAME(LOC) 4E.2; GLUCOSE,POINT OF CARE 96 MG/DL (70-110)
[2023-07-06 03:20] VITALS: BP 103/63; PULSE 72; RESP 18; TEMP 98.2
[2023-07-06] MEDS: LEVOTHYROXINE SODIUM 88 MCG TABLET PO SCH (05:38)
[2023-07-06 07:51] LABS: GLUCOMETER DEV NAME(LOC) 6N.2B; GLUCOSE,POINT OF CARE 91 MG/DL (70-110)
[2023-07-06 08:08] VITALS: BP 101/65; PULSE 73; RESP 19; TEMP 98.3
[2023-07-06] MEDS: FERROUS SULFATE 325 MG EC TABLET PO SCH (08:17)
[2023-07-06] MEDS: LevETIRAcetam 250 MG TABLET PO SCH ×2 (08:17→21:14)
[2023-07-06] MEDS: MULTIVITAMINS WITH MINERALS, THERAPEUTIC TABLET PO SCH (08:17)
[2023-07-06] MEDS: PANTOPRAZOLE SODIUM 40 MG DR TABLET PO SCH (08:18)
[2023-07-06] MEDS: MetFORMIN HCL 500 MG TABLET PO SCH ×2 (08:18→18:30)
[2023-07-06] MEDS: SODIUM CHLORIDE 1 GM TABLET PO SCH ×3 (08:18→23:38)
[2023-07-06] MEDS: ATORVASTATIN CALCIUM 20 MG TABLET PO SCH (08:18)
[2023-07-06] MEDS: HEPARIN SODIUM,PORCINE 5,000 UNITS/ML VIAL SQ SCH ×3 (08:18→23:39)
[2023-07-06] MEDS: DULoxetine HCL 20 MG CAPSULE PO SCH (08:18)
[2023-07-06 12:36] LABS: GLUCOMETER DEV NAME(LOC) 6S.2; GLUCOSE,POINT OF CARE 101 MG/DL (70-110)
[2023-07-06] MEDS: OxyCODONE HCL 10 MG IR TABLET PO PRN ×2 (13:16→21:15)
[2023-07-06 20:18] VITALS: BP 104/67; PULSE 76; RESP 18; TEMP 97.9
[2023-07-07] MEDS: TraMADol HCL 50 MG TABLET PO PRN ×2 (00:57→21:01)
[2023-07-07 02:36] LABS: GLUCOMETER DEV NAME(LOC) 6N.2B; GLUCOSE,POINT OF CARE 106 MG/DL (70-110)
[2023-07-07 02:36] LABS: GLUCOMETER DEV NAME(LOC) 6S.2; GLUCOSE,POINT OF CARE 124 MG/DL (70-110)
[2023-07-07] MEDS: LEVOTHYROXINE SODIUM 88 MCG TABLET PO SCH (05:37)
[2023-07-07 06:34] VITALS: BP 101/65; PULSE 72; RESP 18; TEMP 98
[2023-07-07 08:05] VITALS: BP 110/68; PULSE 64; RESP 18; TEMP 98.4
[2023-07-07] MEDS: LevETIRAcetam 250 MG TABLET PO SCH ×2 (09:14→21:00)
[2023-07-07] MEDS: PANTOPRAZOLE SODIUM 40 MG DR TABLET PO SCH (09:14)
[2023-07-07] MEDS: DULoxetine HCL 20 MG CAPSULE PO SCH (09:15)
[2023-07-07] MEDS: ATORVASTATIN CALCIUM 20 MG TABLET PO SCH (09:15)
[2023-07-07] MEDS: MetFORMIN HCL 500 MG TABLET PO SCH ×2 (09:15→17:19)
[2023-07-07] MEDS: SODIUM CHLORIDE 1 GM TABLET PO SCH ×2 (09:16→17:18)
[2023-07-07] MEDS: MULTIVITAMINS WITH MINERALS, THERAPEUTIC TABLET PO SCH (09:16)
[2023-07-07] MEDS: HEPARIN SODIUM,PORCINE 5,000 UNITS/ML VIAL SQ SCH ×2 (09:16→17:19)
[2023-07-07] MEDS: FERROUS SULFATE 325 MG EC TABLET PO SCH (09:16)
[2023-07-07 12:41] LABS: GLUCOMETER DEV NAME(LOC) 6N.2B; GLUCOSE,POINT OF CARE 107 MG/DL (70-110)
[2023-07-07 16:22] VITALS: BP 105/78; PULSE 90; RESP 18; TEMP 97.8
[2023-07-07 18:36] LABS: GLUCOMETER DEV NAME(LOC) 6N.2B; GLUCOSE,POINT OF CARE 121 MG/DL (70-110)
[2023-07-07 19:44] VITALS: BP 118/73; PULSE 76; RESP 18; TEMP 98.2
[2023-07-07 23:26] LABS: GLUCOMETER DEV NAME(LOC) 6N.2B; GLUCOSE,POINT OF CARE 100 MG/DL (70-110)
[2023-07-08] MEDS: HEPARIN SODIUM,PORCINE 5,000 UNITS/ML VIAL SQ SCH ×3 (00:33→17:07)
[2023-07-08] MEDS: SODIUM CHLORIDE 1 GM TABLET PO SCH ×3 (00:33→17:08)
[2023-07-08 04:22] VITALS: BP 130/78; PULSE 80; RESP 18; TEMP 98
[2023-07-08] MEDS: LEVOTHYROXINE SODIUM 88 MCG TABLET PO SCH (05:28)
[2023-07-08 07:12] LABS: GLUCOMETER DEV NAME(LOC) 6N.2B; GLUCOSE,POINT OF CARE 105 MG/DL (70-110)
[2023-07-08] MEDS: PANTOPRAZOLE SODIUM 40 MG DR TABLET PO SCH (09:37)
[2023-07-08] MEDS: MULTIVITAMINS WITH MINERALS, THERAPEUTIC TABLET PO SCH (09:37)
[2023-07-08] MEDS: DULoxetine HCL 20 MG CAPSULE PO SCH (09:38)
[2023-07-08] MEDS: MetFORMIN HCL 500 MG TABLET PO SCH ×2 (09:38→17:08)
[2023-07-08] MEDS: FERROUS SULFATE 325 MG EC TABLET PO SCH (09:38)
[2023-07-08] MEDS: ATORVASTATIN CALCIUM 20 MG TABLET PO SCH (09:39)
[2023-07-08] MEDS: LevETIRAcetam 250 MG TABLET PO SCH ×2 (09:39→20:36)
[2023-07-08 11:15] VITALS: BP 116/75; PULSE 74; RESP 20; TEMP 98.6
[2023-07-08 11:56] LABS: GLUCOMETER DEV NAME(LOC) 6S.2; GLUCOSE,POINT OF CARE 140 MG/DL (70-110)
[2023-07-08] MEDS: TraMADol HCL 50 MG TABLET PO PRN (14:46)
[2023-07-08 17:02] VITALS: BP 96/66; PULSE 76; RESP 20; TEMP 97.7
[2023-07-08 18:56] LABS: GLUCOMETER DEV NAME(LOC) 4E.2; GLUCOSE,POINT OF CARE 110 MG/DL (70-110)
[2023-07-08 19:58] VITALS: BP 108/73; PULSE 78; RESP 20; TEMP 98
[2023-07-09] MEDS: SODIUM CHLORIDE 1 GM TABLET PO SCH ×3 (00:23→09:05)
[2023-07-09] MEDS: HEPARIN SODIUM,PORCINE 5,000 UNITS/ML VIAL SQ SCH ×3 (00:24→09:05)
[2023-07-09 04:15] VITALS: BP 103/66; PULSE 84; RESP 18; TEMP 97.9
[2023-07-09] MEDS: LEVOTHYROXINE SODIUM 88 MCG TABLET PO SCH (05:40)
[2023-07-09] MEDS: TraMADol HCL 50 MG TABLET PO PRN (05:50)
[2023-07-09 06:11] LABS: GLUCOMETER DEV NAME(LOC) 6N.2B; GLUCOSE,POINT OF CARE 110 MG/DL (70-110)
[2023-07-09 06:12] LABS: GLUCOMETER DEV NAME(LOC) 6N.2B; GLUCOSE,POINT OF CARE 90 MG/DL (70-110)
[2023-07-09] MEDS: FERROUS SULFATE 325 MG EC TABLET PO SCH (09:04)
[2023-07-09] MEDS: LevETIRAcetam 250 MG TABLET PO SCH (09:04)
[2023-07-09] MEDS: ATORVASTATIN CALCIUM 20 MG TABLET PO SCH (09:04)
[2023-07-09] MEDS: MetFORMIN HCL 500 MG TABLET PO SCH (09:04)
[2023-07-09] MEDS: MULTIVITAMINS WITH MINERALS, THERAPEUTIC TABLET PO SCH (09:04)
[2023-07-09] MEDS: PANTOPRAZOLE SODIUM 40 MG DR TABLET PO SCH (09:05)
[2023-07-09] MEDS: DULoxetine HCL 20 MG CAPSULE PO SCH (09:05)
[2023-07-09 09:24] VITALS: BP 117/83; PULSE 75; RESP 20; TEMP 97.9
[2023-07-09 10:54] LABS: BASOPHILS % (AUTO) 0.9 % (0.0-2.0); EOSINOPHILS % (AUTO) 3.3 % (1.0-6.0); HEMATOCRIT 37.2 % (41-53); HEMOGLOBIN 11.8 g/dL (13.5-17.5); LYMPHOCYTES # (AUTO) 3.6 K/uL (1.0-4.8); LYMPHOCYTES % (AUTO) 35.3 % (22.0-44.0); MEAN CORPUSCULAR HEMOGLOBIN 22.5 pg (26.0-34.0); MEAN CORPUSCULAR HGB CONC 31.6 G/dL (31.0-37.0); MEAN CORPUSCULAR VOLUME 71 fL (80-100); MONOCYTES % (AUTO) 9.4 % (2.0-9.0); NEUTROPHILS # (AUTO) 5.2 K/uL (1.8-7.7); NEUTROPHILS % (AUTO) 51.1 % (40.0-70.0); PLATELET COUNT (AUTO) 412 K/uL (150-450); RED BLOOD CELL COUNT(AUTO) 5.22 MIL/uL (4.50-5.90); RED CELL DISTRIBUTION WIDTH 14.5 % (11.5-14.5); WHITE BLOOD COUNT (AUTO) 10.2 K/uL (4.5-11.0)
[2023-07-09 11:10] LABS: ANION GAP 9 mmol/L (8-16); CALCIUM, TOTAL 9.9 mg/dL (8.8-10.5); CARBON DIOXIDE 27 mmol/L (22-29); CHLORIDE 102 mmol/L (98-107); CREATININE 0.42 mg/dL (0.60-1.30); GLOMERULAR FILTR. RATE CALC > 60 mL/min (>60); GLUCOSE,RANDOM 93 mg/dL (70-110); POTASSIUM 3.6 mmol/L (3.5-5.1); SODIUM SERUM 138 mmol/L (136-145)
[2023-07-09 11:16] LABS: UREA NITROGEN, BLOOD 6 mg/dL (7-18)
[2023-07-09 11:41] LABS: RBC MORPHOLOGY COMMENT ABNORMAL RBC MORPH
[2023-07-09] MEDS ORDERED: SODI100067 PO (14:18)
[2023-07-09] MEDS ORDERED: MULT-1390 PO (14:23)
[2023-07-09] MEDS ORDERED: SODIUM CHLORIDE 1 GM TABLET PO SCH (21:00)
== END 2023-07-09 14:15 | disposition home health service (06) | DRG 380 ==
LOC: EDBD 13:57 → EMS 13:57 → 6S 21:28
PROVIDERS: ADMIT Internal Medicine; ATTEND Internal Medicine
DX: L89.154 Pressure ulcer of sacral region, stage 4 (principal); E43 Unspecified severe protein-calorie malnutrition; G82.20 Paraplegia, unspecified; E87.1 Hypo-osmolality and hyponatremia; E11.9 Type 2 diabetes mellitus without complications; Z93.3 Colostomy status; K59.00 Constipation, unspecified; I10 Essential (primary) hypertension; I25.10 Atherosclerotic heart disease of native coronary artery without angina pectoris; E55.9 Vitamin D deficiency, unspecified; Z20.822 Contact with and (suspected) exposure to COVID-19; E03.9 Hypothyroidism, unspecified; M81.0 Age-related osteoporosis without current pathological fracture; H54.8 Legal blindness, as defined in USA; K21.9 Gastro-esophageal reflux disease without esophagitis; R33.9 Retention of urine, unspecified; R74.8 Abnormal levels of other serum enzymes; G31.84 Mild cognitive impairment of uncertain or unknown etiology; N31.9 Neuromuscular dysfunction of bladder, unspecified; G40.909 Epilepsy, unspecified, not intractable, without status epilepticus; E78.5 Hyperlipidemia, unspecified; L98.419 Non-pressure chronic ulcer of buttock with unspecified severity; Z53.20 Procedure and treatment not carried out because of patient's decision for unspecified reasons; Z68.20 Body mass index [BMI] 20.0-20.9, adult; Z74.01 Bed confinement status; Z91.199 Patient's noncompliance with other medical treatment and regimen due to unspecified reason; Z99.3 Dependence on wheelchair; Z88.6 Allergy status to analgesic agent
CPT/HCPCS: 71045; 72170; 72197; 80048; 80053; 82962; 83036; 83735; 85025; 85651; 86140; 87040; 87070; 87081; 87186; 87205; 97110; 97162; 97163; 97530; 99285; J1644; J2270; J2405; 36415-L1; 36415-TC